=== PATIENT | female | born 1975 | race Caucasian/White ===

== ENCOUNTER 2018-09-22 08:20 | Outpatient (CLI) | payer BC, SELFPAY ==
[2018-09-22 10:38] LABS: ALT 35 U/L (12-78); AST 19 U/L (15-37); Albumin 3.7 g/dL (3.4-5.0); Alkaline Phosphatase 119 U/L (46-116); BUN 11 mg/dL (7-18); Bilirubin, Total 0.4 mg/dL (0.2-1.0); CREATININE 0.81 mg/dL (0.55-1.02); Calcium 9.5 mg/dL (8.5-10.1); Chloride 104 mmol/L (98-107); Cholesterol 164 mg/dL (50-200); Glucose 106 mg/dL (70-100); HDL Cholesterol 36 mg/dL (40-60); LDL CHOLESTEROL 105 mg/dL (<100); Potassium 4.5 mmol/L (3.5-5.1); Sodium 142 mmol/L (136-145); Total Protein 7.3 g/dL (6.4-8.2); Triglyceride 169 mg/dL (30-150)
[2018-09-24 04:41] LABS: Hemoglobin A1C 6.1 % (4.5-6.2)
== END 2018-09-22 08:40 ==
PROVIDERS: PCP Family Medicine; Visit Provider Physician Assistant Medical
DX: R73.01 Impaired fasting glucose (principal); I10 Essential (primary) hypertension; E78.5 Hyperlipidemia, unspecified
CPT/HCPCS: 36415; 80053; 80061; 83721; 83036

== ENCOUNTER 2018-09-27 02:13 | Outpatient (CLI) | payer BC, SELFPAY ==
--- NOTE | 2018-09-27 14:33 | PFT_ITS ---
PULMONARY FUNCTION TEST REPORT DATE OF SERVICE: September 27, 2018 REQUESTING PROVIDER: Terri Feng Spirometry shows no evidence of obstructive airways disease. No bronchodilator response. Lung volumes show no evidence of restriction. Diffusion capacity normal. Airways resistance normal. IMPRESSION: Normal pulmonary function study. Clinical correlation recommended. JUVENTINO/mookie D/
[2018-09-27] MEDS: Inhaler, Assist Device 1 EACH MC (16:26)
[2018-09-27] MEDS: Albuterol HFA 18 GM 200 PUFF INH IH (16:27)
== END 2018-09-27 02:33 ==
PROVIDERS: PCP Family Medicine; Visit Provider Physician Assistant Medical
DX: F17.210 Nicotine dependence, cigarettes, uncomplicated (principal)
CPT/HCPCS: 94060; 94150; 94726; 94729

== ENCOUNTER 2018-12-26 00:33 | Outpatient (CLI) | payer BC, SELFPAY ==
--- NOTE | 2018-12-26 08:10 | DI.MAMMO_ITS ---
SYMPTOM/DIAGNOSIS: SCREENING, [facility] [place], Z00.8, BASELINE MAMMOGRAMS: Mammograms were interpreted according to the usual protocol including computer analysis with CAD system, tomosynthesis and C view imaging. The breast tissue is primarily of fatty radiodensity. There is no mass. There are no suspicious calcifications and there is nothing specific to suggest a malignancy. IMPRESSION: Category 1. Breast density, category A. MQSA ASSESSMENT OF FINDINGS: Negative. Category 1. Patient will receive a letter notifying them of these results. BI-RAD category A. The breasts are almost entirely fatty.
== END 2018-12-26 00:53 ==
PROVIDERS: PCP Family Medicine; Visit Provider Physician Assistant Medical
DX: Z00.00 Encounter for general adult medical examination without abnormal findings (principal); Z12.31 Encounter for screening mammogram for malignant neoplasm of breast
CPT/HCPCS: 77063; 77067

== ENCOUNTER 2018-12-26 18:44 | Emergency (ER) | payer BC, SELFPAY ==
[2018-12-26 19:18] VITALS: BP 168/93; PULSE 104; RESP 16; O2SAT 96
--- NOTE | 2018-12-26 20:21 | ED.GENADUL_ITS ---
Discharge Plan Disposition Patient Disposition: HOME Discharge Details Chief Complaint: Laceration Primary Care Provider: Janice Perez V ED Provider: Clark Quick Home Meds and New Rx's Prescriptions: Continued levothyroxine 175 MCG tablet 200 mcg PO DAILY RF: 0 losartan 25 MG tablet 25 mg PO QAM RF: 0 ibuprofen 800 MG tablet 800 mg PO TID PRN PRNQty: 30 RF: 0 ProAir HFA 8.5 GM HFA aerosol inhaler 8.5 gm Inhalation PRN PRNRF: 0 prednisone 20 MG tablet 40 mg PO DAILY Qty: 14 RF: 0 simvastatin 20 mg Tablet 20 mg PO DAILY RF: 0 Discharge Data Discharge Date/Time-TO BE ENTERED AT DEPARTURE: 12/26/18 20:28 Medical Decision Making Flap laceration to the MCP of right index finger. Tissue is devascularized. 4 mL's of 1% lidocaine with epinephrine were injected. Wound was cleansed and thoroughly irrigated. Flap was removed. Attempted to hold pressure to achieve hemostasis but this was unsuccessful after multiple attempts. Electrocautery was utilized to stop small capillary bleeding and Dermabond was then applied. Patient tolerated procedure well. Patient was encouraged to keep wound clean and dry watch for any signs for of infection. Return precautions were thoroughly discussed with patient. After discussion of diagnosis and plan of care patient has no further needs, questions, or concerns and states clear understanding to return to the emergency department for any worsening symptoms. HPI General Mode of arrival: ambulatory . Date/Time Provider Initiated Documentation: 12/26/18 19:30 . Limitations to Documentation: no limitations . Information obtained by: patient and RN notes reviewed . History of Present Illness 43 year old F presents to the emergency department with the chief complaint of Laceration, described as mild, with intensity rated at 1. Quality is described as aching, and is localized to the right and upper extremity. Patient started experiencing this hour(s) (1) and it has been constant. No relieving factors improve symptom(s), Patient notes no other symptoms.. Patient did receive the following treatments prior to arrival, none Related Data Home Medications Medication Instructions Recorded Confirmed levothyroxine 200 mcg PO DAILY 08/07/13 12/26/18 ibuprofen 800 mg PO TID PRN PRN #30 tablet 02/22/15 12/26/18 losartan 25 mg PO QAM 02/22/15 12/26/18 ProAir HFA 8.5 gm INHALATION PRN PRN 08/18/15 12/26/18 prednisone 40 mg PO DAILY #14 tablet 08/18/15 12/26/18 simvastatin 20 mg PO DAILY 12/26/18 12/26/18 Previous Rx's Medication Instructions Recorded ibuprofen 800 mg PO TID PRN PRN #30 tablet 02/22/15 prednisone 40 mg PO DAILY #14 tablet 08/18/15 Allergies Allergy/AdvReac Type Severity Reaction Status Date / Time No Known Allergies Allergy Unverified 12/26/18 19:23 General Stated Complaint: Laceration RONALD: 4 Review of Systems Cardiovascular Denies syncope and Denies lightheadedness Musculoskeletal Denies deformity, Denies limited range of motion and Denies numbness Integumentary/Breasts Reports as per HPI Neurologic Denies syncope, Denies numbness and Denies paresthesias [facility] Social History Smoking and Tabacco status: Current every day Exam Const General: cooperative and no acute distress Orientation: alert, awake and oriented x3 Limitations: mental status not altered Resp Effort & Inspection: normal respiratory effort and able to speak in complete sentences Cardio Rate: regular rate Rhythm: regular rhythm Neuro General: alert, awake, oriented x3, gait normal, tone normal, moves all extremities, normal light touch, pain and propioception and no focal motor deficits Motor: no movement abnormalities noted Sensory Exam: no sensory deficits noted Extrem Right upper extremity: hand Details: normal capillary refill, neuromotor exam normal, neurosensory exam normal (Two-point discrimination normal), tendon exam normal and laceration (Flap laceration to the dorsal hand above second MCP) Course Vital Signs Pulse 104 H 12/26/18 19:18 Respiratory Rate 16 12/26/18 19:18 Blood Pressure 168/93 H 12/26/18 19:18 Pulse Oximetry 96 12/26/18 19:18 Pulse 104 H 12/26/18 19:18 Respiratory Rate 16 12/26/18 19:18 Respiratory Effort 12/26/18 19:18 Blood Pressure 168/93 H 12/26/18 19:18 Pulse Oximetry 96 12/26/18 19:18 Oxygen Delivery Method Room Air 12/26/18 19:18 Oxygen Flow Rate 0 02/13/19 19:18 Pain Level 1 12/26/18 19:22
[2018-12-26 20:28] VITALS: BP 140/88; PULSE 88; RESP 16; O2SAT 96
== END 2018-12-26 20:28 | disposition home or self-care (01) ==
PROVIDERS: Emergency Provider Nurse Practitioner Family; PCP Family Medicine
DX: S61.210A Laceration without foreign body of right index finger without damage to nail, initial encounter (principal); W25.XXXA Contact with sharp glass, initial encounter
CPT/HCPCS: 12001

== ENCOUNTER 2019-08-15 15:43 | Emergency (ER) | payer BC, SELFPAY ==
[2019-08-15 15:48] VITALS: BP 137/87; PULSE 98; RESP 18; TEMP 36.8; O2SAT 98
--- NOTE | 2019-08-15 16:24 | ED.GENADUL_ITS ---
Discharge Plan Disposition Patient Disposition: HOME Condition: Good Discharge Details Chief Complaint: RespSymp Clinical Impression: Acute respiratory infection Primary Care Provider: Janice Perez V ED Provider: April Contreras Home Meds and New Rx's Prescriptions: New azithromycin 250 mg tablet See Rx Instructions .ROUTE .COMPLEX Qty: 6 RF: 0 benzonatate [Tessalon Perles] 100 mg capsule 100 mg PO TID PRN (Reason: cough) Qty: 10 RF: 0 No Action levothyroxine 175 MCG tablet 200 mcg PO DAILY RF: 0 losartan 25 MG tablet 25 mg PO QAM RF: 0 ibuprofen 800 MG tablet 800 mg PO TID PRN PRNQty: 30 RF: 0 albuterol sulfate [ProAir HFA] 8.5 GM HFA aerosol inhaler 8.5 gm Inhalation PRN PRNRF: 0 amlodipine 10 mg Tablet 10 mg PO DAILY RF: 0 simvastatin 20 mg Tablet 20 mg PO DAILY RF: 0 Discharge Instructions Instructions: Acute Cough (ED) Additional Instructions: Drink plenty of fluids. Use ibuprofen or Tylenol for soreness if needed. Rest activities as tolerated. Use antibiotic as prescribed. Recheck with primary care doctor if not improving in the next 3 to 5 days. Cough medication for symptomatic relief if desired. Return sooner if not improving, for worsening or alarming symptoms or for lack of improvement as expected as discussed Medical Decision Making This a pleasant 44-year-old woman who presents for complaints of 1 1/2 weeks of cough. Patient presents for worsening and persistent cough. Denies measured or associated fevers. Patient is a smoker. Patient is concerned this time that she requires an antibiotic. On exam patient is well-appearing in general, afebrile. No obvious respiratory wheezing or rhonchi. Discussed with patient at length of viral treatment versus antibiotic at this time. Patient feels she does require an antibiotic which I do not feel is unreasonable given that she has been sick for approximately 10 days, symptoms are worsening and she is at higher risk as a smoker. Azithromycin prescribed. Tessalon Perles also prescribed. Conservative treatments discussed. Prior to discharge, my usual and customary return precautions were reviewed with the patient - this included follow-up instructions and reasons to return to the Emergency Department if conditions worsens, does not improve as expected, or other new concerns arise. HPI General Date/Time Provider Initiated Documentation: 08/15/19 15:56 . HPI Narrative: 44-year-old smoker presents for complaints of cough and congestion. Patient reports 1 1/2 weeks of illness. Patient is concerned his cough is persisting, more bothersome. Patient reports intermittent production of cough. Patient reports associated wheezing. Denies difficulty breathing or shortness of breath. Patient has an inhaler at home which she has not been using. Patient denies any measured fever. Chills initially since resolved. Patient reports nasal congestion. No significant sore throat. Mild hoarseness to her voice is worsening in the last few days. Denies ear pain. No nausea, vomiting or diarrhea. No other concerns or complaints at this time. Related Data Home Medications Medication Instructions Recorded Confirmed levothyroxine 200 mcg PO DAILY 08/07/13 08/15/19 ibuprofen 800 mg PO TID PRN PRN #30 tablet 02/22/15 08/15/19 losartan 25 mg PO QAM 02/22/15 08/15/19 albuterol sulfate [ProAir HFA] 8.5 gm INHALATION PRN PRN 08/18/15 08/15/19 simvastatin 20 mg PO DAILY 12/26/18 08/15/19 amlodipine 10 mg PO DAILY 08/15/19 08/15/19 azithromycin See Rx Instructions .ROUTE 08/15/19 .COMPLEX #6 tab benzonatate [Tessalon Perles] 100 mg PO TID PRN #10 cap 08/15/19 Previous Rx's Medication Instructions Recorded ibuprofen 800 mg PO TID PRN PRN #30 tablet 02/22/15 azithromycin See Rx Instructions .ROUTE 08/15/19 .COMPLEX #6 tab benzonatate [Tessalon Perles] 100 mg PO TID PRN #10 cap 08/15/19 Allergies Allergy/AdvReac Type Severity Reaction Status Date / Time methimazole AdvReac Unknown Unverified 08/15/19 16:11 propylthiouracil AdvReac Unknown Unverified 08/15/19 16:14 General Stated Complaint: RespSymp RONALD: 3 Review of Systems Review of Systems ROS Unobtainable: All systems reviewed & are unremarkable except as noted in HPI and below Constitutional Constitutional: Denies chills, Denies excessive sweating, Denies fever(s), Denies poor appetite and Denies weakness ENT Ears, Nose, Mouth, and Throat: Reports change in voice, Denies dysphagia, Denies dizziness, Reports nasal congestion, Denies sinus pain, Denies sinus pressure, Denies sore throat and Denies throat swelling Cardiovascular Cardiovascular: Denies chest pain Respiratory Respiratory: Denies stridor and Reports wheezing Gastrointestinal Gastrointestinal: Denies dysphagia Integumentary/Breasts Skin/Breast: Denies rash Neurologic Neurologic: Denies dizziness and Denies weakness Endocrine Endocrine: Denies excessive sweating Allergic/Immunologic Allergic/Immunologic: Denies throat swelling and Reports wheezing [facility] Social History Smoking/Tobacco Use Status: Current every day Alcohol Intake: never Drug use: Never Do you feel safe at home: Yes Do you feel safe in your relationship?: Yes Exam Narrative Exam Narrative: CONST: Healthy appearing patient, in no acute distress. Well hydrated. Alert and alert. HENMT: Head nomocephalic, normal to inspection. Atraumatic. Hearing grossly normal. EYES: General normal appearance. Alignment normal. Eyelids normal. Conjunctiva normal. NECK: Normal visual inspection. FROM. Trachea midline. No Midline tenderness. CHEST: Normal insepection of the chest. RESP: Normal respiratory effort. Speaking full sentences. No cough. No audible wheezing. No retractions. CARDIO: No JVD. Regular rate and rhythm. MUSCULOSKELETAL: Normal Gait. FROM of all extremities. SKIN: Normal. Dry. NEURO: Alert and awake. Speech clear. PSYCH: Normal affect. Cooperative. Course Vital Signs Vital signs: Vital Signs Temperature 36.8 C 08/15/19 15:48 Pulse 98 H 08/15/19 15:48 Respiratory Rate 18 08/15/19 15:48 Blood Pressure 137/87 08/15/19 15:48 Pulse Oximetry 98 08/15/19 15:48 Temperature 36.8 C 08/15/19 15:48 Temperature Source Skin 08/15/19 15:48 Pulse 98 H 08/15/19 15:48 Respiratory Rate 18 08/15/19 15:48 Respiratory Effort 08/15/19 15:57 Respiratory Depth Normal 08/15/19 15:57 Blood Pressure 137/87 08/15/19 15:48 Blood Pressure Position Sitting 08/15/19 15:48 Pulse Oximetry 98 08/15/19 15:48 Oxygen Delivery Method Room Air 08/15/19 15:48 Oxygen Flow Rate 0 08/15/19 15:48 Pain Level 4 08/15/19 15:48
== END 2019-08-15 16:50 | disposition home or self-care (01) ==
PROVIDERS: Emergency Provider Physician Assistant; PCP Family Medicine
DX: J06.9 Acute upper respiratory infection, unspecified (principal)
CPT/HCPCS: 99283

== ENCOUNTER 2019-12-23 17:32 | Emergency (ER) | payer BC, SELFPAY ==
--- NOTE | 2019-12-23 18:02 | ED.GENADUL_ITS ---
Discharge Plan Disposition Patient Disposition: HOME Condition: Good Discharge Details Chief Complaint: RespSymp Clinical Impression: Pneumonia Primary Care Provider: Janice Perez V ED Provider: Morelia Simons Home Meds and New Rx's Prescriptions: New prednisone 50 mg tablet 50 mg PO DAILY Qty: 5 RF: 0 doxycycline hyclate 100 mg capsule 100 mg PO BID Qty: 14 RF: 0 Continued levothyroxine 175 MCG tablet 200 mcg PO DAILY RF: 0 losartan 25 MG tablet 25 mg PO QAM RF: 0 ibuprofen 800 MG tablet 800 mg PO TID PRN PRNQty: 30 RF: 0 albuterol sulfate [ProAir HFA] 8.5 GM HFA aerosol inhaler 8.5 gm Inhalation PRN PRNRF: 0 amlodipine 10 mg Tablet 10 mg PO DAILY RF: 0 benzonatate [Tessalon Perles] 100 mg capsule 100 mg PO TID PRN (Reason: cough) Qty: 10 RF: 0 simvastatin 20 mg Tablet 20 mg PO DAILY RF: 0 Discharge Instructions Instructions: Pneumonia (ED) Additional Instructions: Encourage water intake. May use Tylenol and/or ibuprofen as needed for discomfort. Please continue with your inhaler as prescribed. Use a spacer as instructed by nursing staff. Please take the steroid and antibiotics as prescribed. Even if symptoms improve, please take the entire course. Please follow-up with primary care as previously scheduled. If you develop difficulty breathing, shortness of breath, inability stay hydrated or other new/worsening symptoms please seek care urgently once again. Your blood pressure was elevated today, please have this rechecked by your primary. Stand Alone Forms: Work Release Referrals: Janice Perez MD [Primary Care Provider] - Discharge Data Discharge Date/Time-TO BE ENTERED AT DEPARTURE: 12/23/19 19:20 Medical Decision Making Patient is a 44-year-old female with history of hypertension and hypothyroidism, presenting today with chief complaint of cough, runny nose, sore throat. She reports that she has had subjective fevers yesterday but none today. No recent travel. She smokes three quarters of a pack cigarettes daily. States she short of breath with cough. States that cough is been largely nonproductive. Also endorsing nasal congestion. Denies any ear pain. Denies any chest pain. On exam, patient is resting comfortably. She is notably hypertensive. Patient reports that she is on antihypertensive but just took medication prior to arrival. She denies any headache. She has pain expiratory wheezing with scattered. She has crackles in the right lower lobe. I am concerned for possible pneumonia. Patient does have symptoms consistent with influenza but is out of the realm of treatment at this time. With this in mind, do not plan to test. FINDINGS: Lungs: Increased interstitial lung markings suggesting edema, infection or fibrotic changes. Pleural space: Unremarkable. No pleural effusion. No pneumothorax. Heart/Mediastinum: Unremarkable. No cardiomegaly. Bones/joints: Unremarkable. IMPRESSION: Increased interstitial lung markings suggesting edema, infection or fibrotic changes. Discussed these findings with the patient. She will be treated with prednisone and doxycycline. She was given a spacer for her inhaler. She does have inhaler at home and advised to continue with this as previously prescribed. She is given strict return precautions. I have asked that she follow-up with primary care in 1 week for reevaluation. If she develops new or worsening symptoms to seek care urgently once again. All of her questions and concerns were addressed she is in agreement this plan. HPI General Mode of arrival: ambulatory . Date/Time Provider Initiated Documentation: 12/23/19 18:02 . Limitations to Documentation: no limitations . Information obtained by: patient and RN notes reviewed . History of Present Illness 44 year old F presents to the emergency department with the chief complaint of Cough, congestion, fevers, body aches, fatigue, described as moderate, with intensity rated at 5. Quality is described as aching, Patient started experiencing this day(s) (4) and it has been constant. No relieving factors improve symptom(s), No exacerbating factors reported . Patient notes cough, fever/chills, malaise and shortness of breath (With cough); denies chest pain, diaphoresis, headaches, nausea/vomiting, rash and weakness. Patient did receive the following treatments prior to arrival, none Related Data Home Medications Medication Instructions Recorded Confirmed levothyroxine 200 mcg PO DAILY 08/07/13 08/15/19 ibuprofen 800 mg PO TID PRN PRN #30 tablet 02/22/15 08/15/19 losartan 25 mg PO QAM 02/22/15 08/15/19 albuterol sulfate [ProAir HFA] 8.5 gm INHALATION PRN PRN 08/18/15 12/23/19 simvastatin 20 mg PO DAILY 12/26/18 08/15/19 amlodipine 10 mg PO DAILY 08/15/19 08/15/19 benzonatate [Tessalon Perles] 100 mg PO TID PRN #10 cap 08/15/19 doxycycline hyclate 100 mg PO BID #14 cap 12/23/19 prednisone 50 mg PO DAILY #5 tab 12/23/19 Previous Rx's Medication Instructions Recorded ibuprofen 800 mg PO TID PRN PRN #30 tablet 02/22/15 benzonatate [Tessalon Perles] 100 mg PO TID PRN #10 cap 08/15/19 doxycycline hyclate 100 mg PO BID #14 cap 12/23/19 prednisone 50 mg PO DAILY #5 tab 12/23/19 Allergies Allergy/AdvReac Type Severity Reaction Status Date / Time methimazole AdvReac Unknown Unverified 12/23/19 18:09 propylthiouracil AdvReac Unknown Unverified 12/23/19 18:09 General RONALD: 3 Review of Systems Constitutional Constitutional: Reports as per HPI and Denies headache(s) Eyes Eyes: Reports as per HPI, Denies eye discharge and Denies irritation ENT Ears, Nose, Mouth, and Throat: Reports as per HPI and Denies headache(s) Cardiovascular Cardiovascular: Reports as per HPI, Denies chest pain and Denies dyspnea Respiratory Respiratory: Reports as per HPI and Denies dyspnea Gastrointestinal Gastrointestinal: Reports as per HPI, Denies abdominal pain, Denies change in bowel habits, Denies nausea and Denies vomiting Integumentary/Breasts Skin/Breast: Reports as per HPI and Denies rash Neurologic Neurologic: Reports as per HPI and Denies headache(s) [facility] Social History Smoking/Tobacco Use Status: Current every day Alcohol Intake: never Drug use: Never Do you feel safe at home: Yes Do you feel safe in your relationship?: Yes Exam Const General: cooperative, healthy appearing, comfortable, no acute distress, well developed and well groomed Nutritional Appearance: average body habitus and well nourished Orientation: alert and awake [facility] Head: normal to inspection, normocephalic and atraumatic Ears: hearing grossly normal bilaterally, external ears normal and TM's normal bilaterally General nose exam: external nose normal and nares normal Face and sinus: normal facial exam, sinuses nontender and face symmetric Mouth: oral mucosae normal, lip normal, tongue normal, oropharynx normal and moist mucous membranes Teeth and gingiva: dentition normal Throat: posterior oropharynx normal, tonsils normal and uvula midline Eyes General: appearance normal, both eyes and all related structures Neck Neck: normal visual inspection, full ROM, no lymphadenopathy and no meningeal signs Resp Effort & Inspection: normal respiratory effort, able to speak in complete sentences and no respiratory distress Auscultation: crackles (RLL), no rales, no rhonchi and wheezes expiratory wheezes and scattered wheezes Cardio Rate: regular rate Rhythm: regular rhythm Heart Sounds: S1 normal and S2 normal Skin General skin exam: no rashes or lesions noted Neuro General: alert and awake Cognition: normal cognition Speech: speech normal Gait: normal gait Psych Appearance: grossly normal and well kempt Mental Status: mental status grossly normal Speech and Movement: speech and movement normal
[2019-12-23 18:07] VITALS: BP 186/90; PULSE 104; RESP 22; TEMP 36.8; O2SAT 94
[2019-12-23] MEDS: Ibuprofen 600 MG TAB PO (18:18)
[2019-12-23] MEDS: Albuterol/Ipratropium 3 ML UPD VIAL UPD (18:18)
[2019-12-23] MEDS: Acetaminophen 500 MG TAB 1000 MG PO (18:18)
--- NOTE | 2019-12-23 18:38 | DI.RAD_ITS ---
EXAM: XR CHEST 2V PA LATERAL INDICATION: cough, wheezing BLL. COMPARISON: CHEST 2 VIEWS PA,LAT from 08/18/2015 TECHNIQUE: 2D digital imaging was performed. FINDINGS: Heart size is normal. There are mildly increased interstitial markings consistent with fibrotic kayla nges. The findings are slightly more prominent when compared with the previous exam which could indic ate some progression of fibrosis or could indicate bronchitis or mild pulmonary edema. IMPRESSION: Mildly increased interstitial markings could represent progression of fibrotic changes versus superim posed pulmonary edema or infectious cause.
--- NOTE | 2019-12-23 18:50 | DI.VRAD_ITS ---
PROCEDURE INFORMATION: Exam: XR Chest, 2 Views Exam date and time: 12/23/2019 6:38 PM Age: 44 years old Clinical indication: Other: Cough, wheezing bll TECHNIQUE: Imaging protocol: XR of the chest Views: 2 views. COMPARISON: CR CHEST 2 VIEWS PA,LAT 08/18/2015 11:04 AM FINDINGS: Lungs: Increased interstitial lung markings suggesting edema, infection or fibrotic changes. Pleural space: Unremarkable. No pleural effusion. No pneumothorax. Heart/Mediastinum: Unremarkable. No cardiomegaly. Bones/joints: Unremarkable. IMPRESSION: Increased interstitial lung markings suggesting edema, infection or fibrotic changes. Dictated and Authenticated by: Josué Brito MD. Ordering:ALEN Thibodeaux MD
[2019-12-23 19:20] VITALS: BP 153/91; PULSE 103; RESP 18; TEMP 36.6; O2SAT 93
== END 2019-12-23 19:20 | disposition home or self-care (01) ==
PROVIDERS: Emergency Provider Physician Assistant; PCP Family Medicine
DX: J02.9 Acute pharyngitis, unspecified (principal); R05 Cough; J18.9 Pneumonia, unspecified organism; F17.210 Nicotine dependence, cigarettes, uncomplicated; I10 Essential (primary) hypertension
CPT/HCPCS: 94640; 99283; 71046; 99284; J7620

== ENCOUNTER 2020-01-16 08:31 | Outpatient (CLI) | payer BC, SELFPAY ==
--- NOTE | 2020-01-16 | DI.RAD_ITS ---
EXAM: XR CHEST 2V PA LATERAL CLINICAL HISTORY: COUGH, R05 TECHNIQUE: 2D digital imaging was performed. COMPARISON: XR CHEST 2V PA LATERAL from 12/23/2019 FINDINGS: MEDIASTINUM: Normal. HEART: Normal. PULMONARY VASCULATURE: Normal. LUNGS: Clear. PLEURAL SPACE: No pleural effusion or pneumothorax. BONE:Normal. OTHER FINDINGS:Normal. IMPRESSION: No acute pulmonary findings. DATA REPOSITORY: RADIATION DOSE DELIVERED:
== END 2020-01-16 08:51 ==
PROVIDERS: PCP Family Medicine; Visit Provider Physician Assistant Medical
DX: R05 Cough (principal)
CPT/HCPCS: 71046

== ENCOUNTER 2020-01-18 08:37 | Outpatient (CLI) | payer BC, SELFPAY ==
[2020-01-18 14:07] LABS: ALT 51 U/L (14-59); AST 29 U/L (15-37); Albumin 3.9 g/dL (3.4-5.0); Alkaline Phosphatase 113 U/L (46-116); Anion Gap 8.7 mmol/L (3-11); BUN 13 mg/dL (7-18); Bilirubin, Total 0.3 mg/dL (0.2-1.0); CO2 28.3 mmol/L (21.0-32.0); CREATININE 0.74 mg/dL (0.55-1.02); Calcium 9.1 mg/dL (8.5-10.1); Calculated LDL 176 mg/dL (<100); Chloride 106 mmol/L (98-107); Cholesterol 257 mg/dL (<200); Glucose 124 mg/dL (74-106); HDL Cholesterol 33 mg/dL (40-60); Potassium 4.3 mmol/L (3.5-5.1); Sodium 143 mmol/L (136-145); TSH 1.43 uIU/mL (0.36-3.74); Total Protein 7.3 g/dL (6.4-8.2); Triglyceride 241 mg/dL (<150)
[2020-01-20 08:31] LABS: Hemoglobin A1C 6.6 % (3.8-5.6)
== END 2020-01-18 08:57 ==
PROVIDERS: PCP Family Medicine; Visit Provider Physician Assistant Medical
DX: R73.01 Impaired fasting glucose (principal); E03.9 Hypothyroidism, unspecified; E78.5 Hyperlipidemia, unspecified; Z00.00 Encounter for general adult medical examination without abnormal findings
CPT/HCPCS: 36415; 80053; 80061; 83036; 84443

== ENCOUNTER 2020-07-21 15:53 | Outpatient (REF) | payer BC, SELFPAY ==
[2020-07-21 19:26] LABS: Abs Immature Grans 0.04 10^3/uL (0.0-0.06); Absolute Basophil Count 0.07 10^3/uL (0.0-0.2); Absolute Lymphocyte Count 2.43 10^3/uL (1.2-3.4); Absolute Monocyte Count 0.59 10^3/uL (0.1-0.8); Absolute Neutrophil Count 6.15 10^3/uL (1.2-6.7); Basophils % 0.7; Eosinophils % 4.1; HCT 47.3 % (36.0-46.0); HGB 15.5 g/dL (11.2-15.7); Immature Grans % 0.4; Lymphocytes % 25.1; MCH 29.4 pg (27.0-33.0); MCHC 32.8 % (32.0-36.0); MCV 89.6 fL (80-95); MPV 10.3 fL (8.0-11.0); Monocytes % 6.1; Neutrophils % 63.6; Nucleated RBC 0 %; Platelet Count 317 10^3/uL (130-400); RBC 5.28 10^6/uL (3.93-5.22); RDW 14.1 % (11.7-14.6); RDW-SD 46.4 fL; WBC 9.68 10^3/uL (4.4-10.8)
[2020-07-21 19:55] LABS: ALT 43 U/L (14-59); AST 30 U/L (15-37); Albumin 3.9 g/dL (3.4-5.0); Alkaline Phosphatase 118 U/L (46-116); Anion Gap 8.5 mmol/L (3-11); BUN 11 mg/dL (7-18); Bilirubin, Total 0.3 mg/dL (0.2-1.0); CO2 26.5 mmol/L (21.0-32.0); CREATININE 0.76 mg/dL (0.55-1.02); Calcium 9.2 mg/dL (8.5-10.1); Calculated LDL 205 mg/dL (<100); Chloride 102 mmol/L (98-107); Cholesterol 277 mg/dL (<200); Glucose 125 mg/dL (74-106); HDL Cholesterol 32 mg/dL (40-60); Potassium 4.5 mmol/L (3.5-5.1); Sodium 137 mmol/L (136-145); TSH 6.25 uIU/mL (0.36-3.74); Total Protein 7.3 g/dL (6.4-8.2); Triglyceride 200 mg/dL (<150)
[2020-07-21 20:06] LABS: Hemoglobin A1C 6.2 % (<5.7)
[2020-07-23 16:33] LABS: IgA 233 mg/dL (85-499); Interpretation (See Note); Tissue Transglutaminase IgA <1.2 U/mL (<4.0)
== END 2020-07-21 16:13 ==
LOC: NCHCN 15:53
PROVIDERS: PCP Family Medicine; Visit Provider Physician Assistant Medical
DX: E11.9 Type 2 diabetes mellitus without complications (principal); E78.5 Hyperlipidemia, unspecified; I10 Essential (primary) hypertension; E03.9 Hypothyroidism, unspecified; R19.7 Diarrhea, unspecified
CPT/HCPCS: 80053; 80061; 82784; 83516; 83036; 84443; 85025

== ENCOUNTER 2020-11-11 17:10 | Outpatient (REF) | payer BC, SELFPAY ==
--- OUTSIDE RECORDS SUMMARY | 2020-11-11 17:25 | XMS_ITS ---
:1975 Author Care Team Providers Name Role Phone DR. DOROTHY GOLDMAN Primary Care Provider [phone] DR. DOROTHY GOLDMAN Referring Provider [phone] Allergies Code Code System Name Reaction Severity Status Onset 6835 RxNorm Methimazole ? ? Active ? Medications Name Status Start Date Stop Date ? ? amlodipine 10 mg tablet Active ? Not avai lable Take 1 tablet every day by oral route. aspirin 81 mg tablet,delayed release Active ? Not available Take 1 tablet every day by oral route. azithromycin 250 mg tablet Active ? Not a vailable benzonatate 100 mg capsule Active ? Not a vailable Crestor 5 mg tablet Active ? Not availabl e Take 1 tablet every day by oral route. doxycycline hyclate 100 mg capsule Active ? Not available Glucophage 500 mg tablet Active ? Not savana ilable Take 1 tablet every day by oral route. levothyroxine 100 mcg tablet Active ? Not available Take 1 tablet every day by oral route. levothyroxine 125 mcg tablet Active ? Not available Take 1 tablet every day by oral route. losartan 100 mg tablet Active ? Not avail able Take 1 tablet every day by oral route. metformin ER 500 mg tablet,extended Active ? Not available release 24 hr OneTouch Delica Plus Lancet 33 gauge Active ? Not available OneTouch Ultra Blue Test Strip Active ? N ot available OneTouch Ultra2 Meter Active ? Not availa ble prednisone 50 mg tablet Active ? Not avai lable ProAir HFA 90 mcg/actuation aerosol inhaler Active ? Not available Inhale 2 puffs every 4 hours by inhalation route as needed. rosuvastatin 20 mg tablet Active ? Not av ailable rosuvastatin 40 mg tablet Active ? Not av ailable triamcinolone acetonide 0.1 % topical ointment Active ? Not available APPLY A THIN LAYER TO THE AFFECTED AREA(S) BY TOPICAL ROUTE 2 T IMES PER DAY Problems Name Status Onset Date Source ? Hypothyroidism Active 05/04/2020 ? Type 2 Diabetes Mellitus Active 05/04/2020 ? Hypertensive Disorder Active 05/04/2020 ? Plantar Fasciitis Active 05/04/2020 ? Nodule of Subcutaneous Tissue of Foot Active 05/04/2020 ? Procedures None recorded. Results Lab Results None recorded. Past Encounters 05/07/2020 Ingrowing Great Toenail; Plantar Fascial Fibromatosis Taz Tavares: [address] [place] [address], Ph. Social History Tobacco Smoking Status Heavy Tobacco Smoker (1 PPD) Vaccine List None recorded. Plan of Care Reminders Provider Appointments None ? ? recorded. Lab None ? ? recorded. Referral None ? ? recorded. Procedures None ? ? recorded. Surgeries None ? ? recorded. Imaging None ? ? recorded. Vitals Height Weight BMI Blood Pressure 163.83 cm 108.86 kg 40.6 kg/m2 140/78 mm[Hg]
[2020-11-11 21:07] LABS: TSH 20.99 uIU/mL (0.36-3.74)
[2020-11-11 21:10] LABS: Hemoglobin A1C 6.2 % (<5.7)
== END 2020-11-11 17:30 ==
LOC: NCHCN 17:10
PROVIDERS: PCP Family Medicine; Visit Provider Physician Assistant Medical
DX: E11.9 Type 2 diabetes mellitus without complications (principal); E78.5 Hyperlipidemia, unspecified
CPT/HCPCS: 83036; 84443

== ENCOUNTER 2020-12-17 15:50 | Outpatient (REF) | payer BC, SELFPAY ==
[2020-12-17 19:05] LABS: Creatine Kinase 211 U/L (26-192)
== END 2020-12-17 15:51 | disposition home or self-care (01) ==
LOC: NCHCN 15:50
PROVIDERS: PCP Family Medicine; Visit Provider Nurse Practitioner Family
DX: E78.5 Hyperlipidemia, unspecified (principal); Z51.81 Encounter for therapeutic drug level monitoring
CPT/HCPCS: 82550

== ENCOUNTER 2021-01-15 09:15 | Outpatient (REF) | payer BC, SELFPAY ==
[2021-01-15 16:10] LABS: BUN 12 mg/dL (7-18); CREATININE 0.9 mg/dL (0.55-1.02); Calcium 9.9 mg/dL (8.5-10.1); Chloride 100 mmol/L (98-107); Creatine Kinase 155 U/L (26-192); Glucose 109 mg/dL (74-106); Potassium 4.1 mmol/L (3.5-5.1); Sodium 140 mmol/L (136-145)
[2021-01-15 22:20] LABS: T3, Total 172 ng/dL (97-169)
== END 2021-01-15 09:16 | disposition home or self-care (01) ==
LOC: NCHCN 09:15
PROVIDERS: PCP Family Medicine; Visit Provider Physician Assistant Medical
DX: I10 Essential (primary) hypertension (principal)
CPT/HCPCS: 80048; 82550; 84480

== ENCOUNTER → 2021-05-28 09:06 | Outpatient (CLI) | payer BC, SELFPAY ==
--- NOTE | 2021-05-28 | DI.RAD_ITS ---
Exam(s) XR SACRUM COCCYX EXAM: XR SACRUM COCCYX CLINICAL HISTORY: COCCYDYNIA M53.3 S/P FALL 05/16/21. TECHNIQUE: 2D digital imaging was performed. COMPARISON: No exams were available for comparison FINDINGS: BONES: No acute fracture is present. No bony destructive lesion is seen. JOINTS: SI joints and pubic symphysis not widened.. SOFT TISSUE: Calcifications iliac arteries.. IMPRESSION: No evidence of fracture.. DATA REPOSITORY: RADIATION DOSE DELIVERED:
== END ==
PROVIDERS: PCP Family Medicine; Visit Provider Physician Assistant Medical
DX: G89.11 Acute pain due to trauma (principal); M53.3 Sacrococcygeal disorders, not elsewhere classified; W19.XXXA Unspecified fall, initial encounter
CPT/HCPCS: 72220

== ENCOUNTER 2021-09-06 09:18 | Outpatient (REF) | payer BC, SELFPAY ==
[2021-09-08 14:31] LABS: COVID-19 RT-PCR UVMMC Result Negative (Negative)
== END 2021-09-06 09:19 | disposition home or self-care (01) ==
LOC: NCHCN 09:18
PROVIDERS: PCP Family Medicine; Visit Provider Physician Assistant Medical
DX: Z20.822 Contact with and (suspected) exposure to COVID-19 (principal)
CPT/HCPCS: U0003

== ENCOUNTER 2021-11-22 15:03 | Outpatient (REF) | payer BC, SELFPAY ==
[2021-11-22 12:33] LABS: Abs Immature Grans 0.07 10^3/uL (0.0-0.06); Absolute Basophil Count 0.09 10^3/uL (0.0-0.2); Absolute Eosinophil Count 0.39 10^3/uL (0.0-0.7); Absolute Lymphocyte Count 2.94 10^3/uL (1.2-3.4); Absolute Neutrophil Count 7.23 10^3/uL (1.2-6.7); Basophils % 0.8; Eosinophils % 3.4; HCT 49.1 % (36.0-46.0); HGB 15.9 g/dL (11.2-15.7); Immature Grans % 0.6; Lymphocytes % 25.4; MCH 29.6 pg (27.0-33.0); MCHC 32.4 % (32.0-36.0); MCV 91.4 fL (80-95); MPV 9.9 fL (8.0-11.0); Monocytes % 7.3; Neutrophils % 62.5; Nucleated RBC 0 %; Platelet Count 341 10^3/uL (130-400); RBC 5.37 10^6/uL (3.93-5.22); RDW-SD 47.3 fL; WBC 11.57 10^3/uL (4.4-10.8)
[2021-11-22 12:34] LABS: Absolute Monocyte Count 0.84 10^3/uL (0.1-0.8)
[2021-11-22 12:49] LABS: Hemoglobin A1C 5.7 % (<5.7)
[2021-11-22 13:02] LABS: ALT 26 U/L (14-59); AST 11 U/L (15-37); Albumin 3.8 g/dL (3.4-5.0); Alkaline Phosphatase 111 U/L (46-116); Anion Gap 8.8 mmol/L (3-11); BUN 13 mg/dL (7-18); Bilirubin, Total 0.2 mg/dL (0.2-1.0); CO2 27.2 mmol/L (21.0-32.0); CREATININE 0.8 mg/dL (0.55-1.02); Calcium 9.2 mg/dL (8.5-10.1); Calculated LDL 194 mg/dL (<100); Chloride 104 mmol/L (98-107); Cholesterol 265 mg/dL (<200); Glucose 97 mg/dL (74-106); HDL Cholesterol 39 mg/dL (40-60); Potassium 4.6 mmol/L (3.5-5.1); Sodium 140 mmol/L (136-145); TSH 2.63 uIU/mL (0.36-3.74); Total Protein 7.2 g/dL (6.4-8.2); Triglyceride 160 mg/dL (<150)
== END 2021-11-22 15:04 | disposition home or self-care (01) ==
LOC: NCHCN 15:03
PROVIDERS: PCP Family Medicine; Visit Provider Physician Assistant Medical
DX: I10 Essential (primary) hypertension (principal); E11.9 Type 2 diabetes mellitus without complications; Z01.818 Encounter for other preprocedural examination
CPT/HCPCS: 80053; 80061; 83036; 84443; 85025

== ENCOUNTER 2021-12-08 00:57 | Outpatient (CLI) | payer BC, SELFPAY ==
--- NOTE | 2021-12-08 | DI.CT_ITS ---
Exam(s) CT ABDOMEN PELVIS W EXAM: CT ABDOMEN PELVIS W CLINICAL HISTORY: RT GROIN PAIN, R10.31. TECHNIQUE: Imaging Protocol: Axial computed tomography images with coronal and sagittal reformatted images were created and reviewed CONTRAST MATERIAL: Intravenous: Omnipaque 100cc Oral: Yes. Oral contrast was administered for bowel opacification. COMPARISON: CT RENAL COLIC WO CONTRAST from 03/28/2012 FINDINGS: VISUALIZED LUNG BASES: No nodules nor pleural effusions evident. ABDOMEN: There is no ascites. LIVER: There are no focal hepatic lesions evident . GALLBLADDER/BILIARY: The gallbladder is again noted be surgically absent. CBD is not dilated. PANCREAS: No evidence of pancreatic mass nor dilatation of the pancreatic duct. SPLEEN: Spleen is not enlarged. No obvious intrasplenic lesions. Splenic and portal veins are paten t. ADRENALS: There are no significant adrenal masses. KIDNEYS:No cysts evident. No solid renal masses. No calculi nor hydronephrosis.. ABDOMINAL AORTA: Heavily calcified but not enlarged. The common iliac arteries are both also heavily calcified but not enlarged. LYMPH NODES:There is no retroperitoneal nor paraaortic adenopathy. ABDOMINAL WALL: No evidence of significant anterior abdominal wall nor inguinal hernia. GI: Right-side of the colon is collapsed from the level of the ileocecal valve up to proximal transve rse colon. The oral contrast has reached the cecum (which is low-lying in the pelvis just above the u rinary bladder. Small bowel loops exhibit upper normal diameter. No bowel obstruction.. PELVIS: GI: Appendix is not seen is a separate structure. No obvious acute appendicitis.No evidence of sigmoi d diverticulitis. LYMPH NODES: No intrapelvic nor inguinal adenopathy. A single slightly prominent lymph node in the [facility] infra-inguinal region noted measures 11 x 5 millimeters. No gross lymphadenopathy in either groin . REPRODUCTIVE: Uterus is surgically absent. No abnormal adnexal masses nor free fluid in the pelvis. URINARY BLADDER: No calculi nor obvious masses evident OSSEOUS: No significant osseous lesions. IMPRESSION: 1. There is evidence of previous cholecystectomy and hysterectomy. Biliary tree is not dilated. No ev idence of small-bowel obstruction 2. No evidence of aneurysm but the abdominal aorta and iliac arteries are heavily calcified this age group indicating significant atherosclerotic involvement. Recommend palpating groin/pedal pulses. 3. Right-side of the colon is collapsed. The oral contrast has reached the cecum which is low lying, just above the urinary bladder. Appendix is not seen but there is no evidence of acute appendicitis n or diverticulitis. 4. Solitary shoddy 11 x 5 millimeter lymph node noted in the right inferior inguinal region. No gross lymphadenopathy evident. RADIATION DOSE DELIVERED: 1,055.4mGy.cm Total DLP DATA REPOSITORY: All CT scans at this facility are submitted to the National Radiology Data Registry (NRDR) Dose Index Registry (DIR) with the [employer] (ACR). RADIATION OPTIMIZATION: All CT scans at this facility use at least one of these dose optimization te chniques: automated exposure control; mA and/or kV adjustment per patient size (includes targeted exa ms where dose is matched to clinical indication); or iterative reconstruction.
[2021-12-08] MEDS: Omnipaque 350 MG/ML 50 ML BTL PO (08:43)
[2021-12-08] MEDS: Breeza Beverage 473 ML BTL PO ×2 (08:44→08:45)
[2021-12-08] MEDS: Omnipaque 350 MG/ML 100 ML BTL IJ (08:45)
[2021-12-08] MEDS: Normal Saline Flush 10 ML SYR IVP (08:47)
--- NOTE | 2021-12-08 10:30 | DI.MAMMO_ITS ---
Exam(s) MAMMO SCREENING EXAM: MAMMO SCREENING CLINICAL HISTORY: SCREENING, HEALTH MAINTENANCE EXAM, Z00.8. TECHNIQUE: Bilateral full field digital CC and MLO mammographic images were obtained with 3D tomosyn thesis and utilizing computer aided detection (CAD). COMPARISON: Prior baseline mammogram of the December 2018 FINDINGS: There are no new spiculated masses nor malignant appearing microcalcification groups. There is no significant architectural distortion nor skin thickening-retraction. IMPRESSION: No radiographic evidence of malignancy. BI-RADS Category 1 - Negative Breast Density - Category A - Almost entirely fatty Breast density Category C or D implies that the patient has dense breast tissue. Dense breast tissue can make it harder to find cancer on a mammogram. Dense breast tissue is also associated with an incr eased risk of breast cancer. This information about the result of the mammogram report was provided to the patient to raise their awareness. Use this report when you speak with the patient about their risks for breast cancer, which includes their family history. At that time, you may recommend additional screening tests (Ultrasoun d or MRI) as these tests may add significant information. A negative radiographic report should not delay biopsy if a dominant or clinically suspicious mass is present. Up to ten percent of cancers are not identified on mammography. A negative report may reinforce clinical impression. Adenosis and dense breasts may obscure an underlying neoplasm. False positive reports average 6 to 10%. Patient will receive a letter notifying them of these results.
== END 2021-12-08 01:17 ==
LOC: DI 00:58
PROVIDERS: PCP Family Medicine; Visit Provider Physician Assistant Medical
DX: Z12.31 Encounter for screening mammogram for malignant neoplasm of breast (principal); Z00.00 Encounter for general adult medical examination without abnormal findings; R10.31 Right lower quadrant pain; I70.0 Atherosclerosis of aorta; K63.89 Other specified diseases of intestine; R59.0 Localized enlarged lymph nodes; Z90.49 Acquired absence of other specified parts of digestive tract; Z90.710 Acquired absence of both cervix and uterus
CPT/HCPCS: 77063; 77067; 74177; J3490; Q9967

== ENCOUNTER 2022-01-01 12:55 | Emergency (ER) | payer BC, SELFPAY ==
--- NOTE | 2022-01-01 13:00 | RT.EKG_ITS ---
APPROVED REPORT Exam: Resting ECG Reason for Exam: palpitations Patient Location: E HR:98 bpm ECG Measurements Heart Rate 98 AXIS KS 200 P 42 QRSd 102 QRS 55 QT 366 T 40 QTc 466 Conclusion Sinus rhythm...normal P axis, V-rate 60- 99 Borderline prolonged KS interval...KS >197, V-rate 91-120 Probable left atrial enlargement...P >50mS, <-0.10mV V1 normal sinus rhythm, normal axis, non ischemic
[2022-01-01 13:01] VITALS: BP 166/74; PULSE 111; RESP 21; TEMP 36.9; O2SAT 96
[2022-01-01 13:58] VITALS: RESP 16
--- NOTE | 2022-01-01 14:15 | DI.CT_ITS ---
Exam(s) CT ABD AORTA CTA W RUNOFF EXAM: CT ABD AORTA CTA W RUNOFF CLINICAL HISTORY: R groin pain, known vessel disease. TECHNIQUE: Imaging Protocol: Axial computed tomography images with coronal and sagittal reformatted images were created and reviewed CONTRAST MATERIAL: Intravenous: Omnipaque 350 Contrast volume:100 ml Oral: None COMPARISON: CT CT ABDOMEN PELVIS W from 12/08/2021 FINDINGS: CHEST: Visualized lung bases reveal a 2-3 millimeter pleural base nodule in the lingular segment. No pleura l effusions ABDOMEN: There is no evidence of abdominal aortic aneurysm nor dissection. The celiac and superior mesenteric arteries are patent.Inferior mesenteric artery is patent. No ischemic appearing bowel loops. There is atherosclerotic involvement of distal abdominal aorta. Also of the common iliac arteries (w hich are not dilated). However, there is no critical stenosis evident in these vessels nor at the ju nction with the external iliac arteries. Both external iliac arteries are patent as are the common f emoral arteries. Internal iliac arteries are patent and nonaneurysmal. There calcified distally. Both SFA arteries are patent without significant disease and Claus's canal and both are continuous w ith patent bilateral popliteal arteries. No evidence of popliteal artery aneurysm. There is three-v essel runoff in the left calf.. Two vessel runoff in the right calf. There is no ascites. LIVER: There are no focal hepatic lesions nor dilatation of intrahepatic ducts. GALLBLADDER/BILIARY: Gallbladder surgically absent. CBD is not dilated. PANCREAS: No evidence of pancreatic mass nor dilatation of the pancreatic duct. SPLEEN: Spleen is not enlarged ADRENALS: There are no significant adrenal masses. KIDNEYS: No cysts evident. No calculi nor hydronephrosis. No solid renal masses. LYMPH NODES: There is no retroperitoneal nor para-aortic adenopathy. No obvious mesenteric masses. ABDOMINAL WALL: No evidence of significant anterior abdominal wall hernia. GI: There is no evidence of bowel obstruction, free air, nor abscess. PELVIS: LYMPH NODES: There is no intrapelvic nor inguinal adenopathy. GI: No evidence of appendicitis.No evidence of sigmoid diverticulitis. URINARY BLADDER: No calculi nor masses evident REPRODUCTIVE: Uterus is surgically absent. No abnormal adnexal masses. OSSEOUS: No significant osseous lesions. IMPRESSION: 1. No evidence of abdominal aortic aneurysm. Moderate atherosclerotic involvement of the distal abdo mraquez aorta and common iliac arteries but without critical stenosis nor occlusion.. Patent runoff in both lower extremities. 2. Gallbladder surgically absent. Biliary tree is not dilated. 3. Uterus is surgically absent. No abnormal adnexal masses. RADIATION DOSE DELIVERED: 1,869.3mGy.cm Total DLP DATA REPOSITORY: All CT scans at this facility are submitted to the National Radiology Data Registry (NRDR) Dose Index Registry (DIR) with the [employer] (ACR). RADIATION OPTIMIZATION: All CT scans at this facility use at least one of these dose optimization te chniques: automated exposure control; mA and/or kV adjustment per patient size (includes targeted exa ms where dose is matched to clinical indication); or iterative reconstruction.
--- NOTE | 2022-01-01 14:15 | DI.RAD_ITS ---
Exam(s) XR CHEST 2V PA LATERAL EXAM: XR CHEST 2V PA LATERAL CLINICAL HISTORY: Palpitation. TECHNIQUE: 2D digital imaging was performed. COMPARISON: CR XR CHEST 2V PA LATERAL from 01/16/2020 FINDINGS: Heart size is normal. The mediastinum is not widened. Lungs are clear. No infiltrates nor pleural effusions. IMPRESSION: No acute pulmonary findings. DATA REPOSITORY: RADIATION DOSE DELIVERED:
--- NOTE | 2022-01-01 14:19 | W.ED.GENAD ---
Discharge Plan Disposition Patient Disposition: HOME Condition: Stable Discharge Details Clinical Impression: Atherosclerosis Primary Care Provider: Janice Perez V ED Provider: Susan Rowan Home Meds and New Rx's Prescriptions: Continued levothyroxine 175 MCG tablet 225 mcg PO DAILY 0RF losartan 25 MG tablet 25 mg PO QAM 0RF ibuprofen 800 MG tablet 800 mg PO TID PRN PRNQty: 30 0RF amlodipine 10 mg Tablet 10 mg PO DAILY 0RF hydrochlorothiazide 25 mg tablet 25 mg PO DAILY 0RF Label Comments: TAKE 1 TABLET BY MOUTH ONCE DAILY Jardiance 10 mg tablet 10 mg PO DAILY 0RF Label Comments: Take 1 tablet by mouth once a day Discharge Instructions Instructions: Groin Pain (ED) Additional Instructions: At this time CT shows no significant occlusion or blockage of your artery. You do have calcification and plaque buildup in the distal aorta and iliac vessels. There is no other abnormalities to explain your pain. Follow up with primary care provider in 3-5 days. Return to ED sooner if any worsening or concerns. Increase oral fluids. Please take Tylenol or Ibuprofen with food every 4-6 hours as needed for pain and swelling. Referrals: Janice Perez MD [Primary Care Provider] - 3 days Discharge Data Discharge Date/Time-TO BE ENTERED AT DEPARTURE: 01/01/22 18:58 Medical Decision Making <SANDEEP Miller - Last Filed: 01/02/22 08:17> 46-year-old female presents for acute on chronic right groin pain, diagnosed with significant atherosclerotic disease via abdomen and pelvis CT with contrast just last month. In the process of getting referral to vascular. Also reports of palpitations a little prior to arrival. Pulse in triage was 111 but during my evaluation was 80. She does have reproducible right groin discomfort worse with palpation and movement. Normal pedal pulses. No swelling, erythema, warmth, discoloration. Given her palpitations, I will initiate a cardiac work-up. We will also obtain CTA of her abdominal aorta with runoff to further evaluation of that right hip pain. Medical Records Medical records reviewed: Yes I reviewed the patient's medical records. ECG Data Attestation: I personally reviewed and interpreted this ECG (s) as follows: Interpretation: Please see official report by Dr. Fields, sinus rhythm, ventricular rate of 98, no STEMI <Susan Rowan - Last Filed: 01/01/22 21:18> 46-year-old female presents for acute on chronic right groin pain, diagnosed with significant atherosclerotic disease via abdomen and pelvis CT with contrast just last month. In the process of getting referral to vascular. Also reports of palpitations a little prior to arrival. Pulse in triage was 111 but during my evaluation was 80. She does have reproducible right groin discomfort worse with palpation and movement. Normal pedal pulses. No swelling, erythema, warmth, discoloration. Given her palpitations, I will initiate a cardiac work-up. We will also obtain CTA of her abdominal aorta with runoff to further evaluation of that right hip pain. 1630: SJ: Care assumed from provider (Riccardo Lee PA-C Please see their initial HPI, PE, and documentation. Discussed patient details and case and pending workup and disposition. Patient is hemodynamically stable, and alert and oriented. At the time of signout awaiting CT, CBC shows no leukocytosis, potassium 3.0, initial troponin within normal limits. Second troponin is due at 1720. 40 mEq potassium p.o. ordered. CTA Aorta Run Off: IMPRESSION: There is mild to moderate atherosclerosis of the distal aorta and iliac vessels. No critical stenosis is seen. There is no vascular occlusion. Lower extremity femoral and runoff vessels are normal. Thank you for allowing us to participate in the care of your patient. Dictated and Authenticated by: Ruperto Quiroz MD Discussed CT results with patient who verbalized understanding. I did discuss follow-up care and strict return instructions. Serial troponin within normal limits. Patient has remained hemodynamically stable throughout her stay. This text was generated using [employer] system, please disregard any oddities of phrase or misspellings. HPI <SANDEEP Miller - Last Filed: 01/02/22 08:17> General Mode of arrival: ambulatory. Date/Time Provider Initiated Documentation: 01/01/22 13:01. Limitations to Documentation: no limitations. Information obtained by: patient. HPI Narrative: This is a 46-year-old female, past medical history that includes hypertension, thyroid disease, vascular disease, presents to the ER for evaluation of right groin pain, in general going on for a few months but worse over the past week or so. She was seen by her primary care provider last month and evaluated for this, CT of her abdomen and pelvis revealed some calcification, and is in the process of being referred to a vascular at [facility]. Patient denies recent illness or trauma. Patient reports that she noticed some chest palpitations little prior to arrival but denies any chest pain or shortness of breath. She denies any fever, headaches, chest pain, shortness of breath, abdominal pain, nausea, vomit, change in bowel or bladder function, numbness, tingling, weakness in her extremities. She denies any history of DVT. She denies any swelling in her extremities Related Data Home Medications Medication Instructions Recorded Confirmed levothyroxine 175 mcg tablet 225 mcg PO DAILY 08/07/13 01/01/22 ibuprofen 800 mg tablet 800 mg PO TID PRN PRN #30 tablet 02/22/15 01/01/22 losartan 25 mg tablet 25 mg PO QAM 02/22/15 01/01/22 amlodipine 10 mg tablet 10 mg PO DAILY 08/15/19 01/01/22 empagliflozin 10 mg tablet 10 mg PO DAILY 01/01/22 01/01/22 (Jardiance) hydrochlorothiazide 25 mg tablet 25 mg PO DAILY 01/01/22 01/01/22 Previous Rx's Medication Instructions Recorded ibuprofen 800 mg tablet 800 mg PO TID PRN PRN #30 tablet 02/22/15 Allergies Allergy/AdvReac Type Severity Reaction Status Date / Time methimazole AdvReac Unknown Unverified 01/01/22 13:05 propylthiouracil AdvReac Unknown Unverified 01/01/22 13:05 General Stated Complaint: Palpitatns RONALD: 2 Review of Systems <SANDEEP Miller - Last Filed: 01/02/22 08:17> Constitutional Constitutional: Denies fever(s) and Denies weakness ENT Ears, Nose, Mouth, and Throat: Denies neck pain Cardiovascular Cardiovascular: Denies chest pain and Denies dyspnea Respiratory Respiratory: Denies dyspnea Gastrointestinal Gastrointestinal: Denies abdominal pain, Denies nausea and Denies vomiting Genitourinary Genitourinary: Denies hematuria and Denies dysuria Musculoskeletal Musculoskeletal: Denies neck pain, Denies numbness, Denies stiffness and Denies tingling Integumentary/Breasts Skin/Breast: Denies rash Neurologic Neurologic: Denies numbness, Denies tingling and Denies weakness [facility] <SANDEEP Miller - Last Filed: 01/02/22 08:17> All Active Problems (Updated 01/01/22 @ 18:43 by Susan Rowan) Pneumonia (Acute) Atherosclerosis (Acute) Social History Smoking/Tobacco Use Status: Current every day Smoking risk assessment performed?: Yes Alcohol Intake: never Drug use: Never Do you feel safe at home: Yes Do you feel safe in your relationship?: Yes Exam <SANDEEP Miller - Last Filed: 01/02/22 08:17> Const General: cooperative, healthy appearing, comfortable and no acute distress Orientation: alert and awake HENMT Head: normal to inspection, normocephalic and atraumatic Eyes Conjunctivae: conjunctivae normal Neck Neck: normal visual inspection, full ROM, trachea midline and supple Resp Effort & Inspection: normal respiratory effort and able to speak in complete sentences Auscultation: clear to auscultation bilaterally Cardio Rate: regular rate Rhythm: regular rhythm GI Inspection: normal to inspection Palpation: soft, not firm, no guarding, no pulsatile masses and nontender Back/Spine/Pelvis Back: No back tenderness Skin General skin exam: no rashes or lesions noted Neuro General: patient alert, patient awake, moves all extremities and no focal motor deficits Cognition: normal cognition Speech: speech normal Gait: antalgic Motor: muscle tone normal throughout Sensory Exam: no sensory deficits noted Extrem General: normal to inspection, full ROM (Movement of the right hip increases) and capillary refill normal Upper/lower leg/hip images: 1. Normal inspection. Diffuse tenderness. No erythema, warmth, induration or fluctuance. A single lymph node is present and tender. Normal femoral pulse, pedal pulse, capillary refill Psych Appearance: grossly normal Mental Status: mental status grossly normal Course <SANDEEP Miller - Last Filed: 01/02/22 08:17> Vital Signs Vital signs: Vital Signs Temperature 36.9 C 01/01/22 13:01 Pulse 111 H 01/01/22 13:01 Respiratory Rate 21 01/01/22 13:01 Blood Pressure 166/74 H 01/01/22 13:01 Pulse Oximetry 96 01/01/22 13:01 Temperature 36.9 C 01/01/22 13:01 Pulse 111 H 01/01/22 13:01 Respiratory Rate 16 01/01/22 13:58 Respiratory Effort 01/01/22 13:58 Respiratory Depth Normal 01/01/22 13:58 Respiratory Pattern Normal 01/01/22 13:58 Blood Pressure 166/74 H 01/01/22 13:01 Blood Pressure Position Supine 01/01/22 13:01 Pulse Oximetry 96 01/01/22 13:01 Oxygen Delivery Method Nasal Cannula 01/01/22 13:01 Pain Level 0 01/01/22 14:04 Sign Out <SANDEEP Miller - Last Filed: 01/02/22 08:17> Sign Out Data: Sign Out Comment: awaiting cardiac work up and CTA Last updated by Riccardo Lee PA at 01/01/22 16:05
[2022-01-01 15:39] LABS: Abs Immature Grans 0.04 10^3/uL (0.0-0.06); Absolute Basophil Count 0.08 10^3/uL (0.0-0.2); Absolute Eosinophil Count 0.27 10^3/uL (0.0-0.7); Absolute Lymphocyte Count 3.15 10^3/uL (1.2-3.4); Absolute Monocyte Count 0.78 10^3/uL (0.1-0.8); Absolute Neutrophil Count 6.31 10^3/uL (1.2-6.7); Basophils % 0.8; Eosinophils % 2.5; HCT 48.3 % (36.0-46.0); HGB 16.2 g/dL (11.2-15.7); Immature Grans % 0.4; Lymphocytes % 29.6; MCH 29.8 pg (27.0-33.0); MCHC 33.5 % (32.0-36.0); MPV 9.8 fL (8.0-11.0); Monocytes % 7.3; Neutrophils % 59.4; Nucleated RBC 0 %; Platelet Count 347 10^3/uL (130-400); RBC 5.43 10^6/uL (3.93-5.22); RDW 13.2 % (11.7-14.6); WBC 10.63 10^3/uL (4.4-10.8)
[2022-01-01 15:55] LABS: PTT Activated 27.2 sec (21.0-27.5); Prothrombin Time 9.9 sec (9.3-11.0)
[2022-01-01 16:02] LABS: ALT 23 U/L (14-59); AST 11 U/L (15-37); Albumin 3.9 g/dL (3.4-5.0); Alkaline Phosphatase 107 U/L (46-116); Anion Gap 8.7 mmol/L (3-11); BUN 18 mg/dL (7-18); Bilirubin, Total 0.3 mg/dL (0.2-1.0); CO2 28.3 mmol/L (21.0-32.0); CREATININE 0.7 mg/dL (0.55-1.02); Calcium 9.5 mg/dL (8.5-10.1); Chloride 101 mmol/L (98-107); Glucose 94 mg/dL (74-106); Magnesium 2.2 mg/dL (1.8-2.4); Sodium 138 mmol/L (136-145); TSH (W/Ref FT4) 0.96 uIU/mL (0.36-3.74); Total Protein 8.1 g/dL (6.4-8.2); Troponin I < 50 ng/L (<or=60)
[2022-01-01 16:21] LABS: D-Dimer 333 ng/mlFEU (<500)
[2022-01-01] MEDS: Omnipaque 350 MG/ML 100 ML BTL 150 ML IJ (16:39)
[2022-01-01] MEDS: Normal Saline Flush 10 ML SYR IVP (16:39)
--- NOTE | 2022-01-01 16:46 | DI.VRAD_ITS ---
PROCEDURE INFORMATION: Exam: XR Chest Exam date and time: 01/01/2022 2:24 PM Age: 46 years old Clinical indication: Other: Palpataions TECHNIQUE: Imaging protocol: XR of the chest. Views: 2 views. COMPARISON: CR XR CHEST 2V PA LATERAL 01/16/2020 12:56 PM FINDINGS: Lungs: Clear lungs. Pleural spaces: No sizable pleural effusion. No pneumothorax. Heart/Mediastinum: Cardiomediastinal silhouette is within normal limits. Bones/joints: No acute displaced fracture or dislocation. IMPRESSION: No acute cardiopulmonary process. Dictated and Authenticated by: Jonatan Ireland MD. Ordering:JIM Gu MD
[2022-01-01] MEDS: Potassium Chloride 20 MEQ TABCR 40 MEQ PO (17:20)
[2022-01-01 18:50] LABS: Troponin I < 50 ng/L (<or=60)
== END 2022-01-01 18:58 | disposition home or self-care (01) ==
PROVIDERS: Physician Assistant; Emergency Provider Registered Nurse Emergency; PCP Family Medicine
DX: I70.0 Atherosclerosis of aorta (principal); R00.2 Palpitations; F17.200 Nicotine dependence, unspecified, uncomplicated; M25.551 Pain in right hip; R10.31 Right lower quadrant pain
CPT/HCPCS: 36415; 75635; 80053; 93005; 99285; 71046; 83735; 84443; 84484; 85025; 85379; 85610; 85730; 93010; 99284; J3490

== ENCOUNTER 2022-09-21 17:22 | Outpatient (REF) | payer BC, SELFPAY ==
[2022-09-21 15:49] LABS: Calculated LDL 213 mg/dL (<100); Cholesterol 285 mg/dL (<200); HDL Cholesterol 42 mg/dL (40-60); Triglyceride 153 mg/dL (<150)
== END 2022-09-21 17:23 | disposition home or self-care (01) ==
LOC: LBN 17:22
PROVIDERS: PCP Family Medicine; Visit Provider Student in an Organized Health Care Education/Training Program
DX: E78.01 Familial hypercholesterolemia (principal)
CPT/HCPCS: 80061

== ENCOUNTER 2022-10-12 23:32 | Outpatient (REF) | payer BC, SELFPAY | END 2022-10-12 23:33 | disposition home or self-care (01) | LOC: LBN 23:32 | PROVIDERS: PCP Family Medicine; Visit Provider Physician Assistant Medical | DX: L29.2 Pruritus vulvae (principal) | CPT/HCPCS: 87480; 87510; 87660 ==

== ENCOUNTER 2023-02-22 16:16 | Outpatient (REF) | payer BC, SELFPAY ==
[2023-02-22 20:26] LABS: Hemoglobin A1C 6.2 % (<5.7)
[2023-02-22 20:36] LABS: TSH 6.52 uIU/mL (0.36-3.74)
[2023-03-01 20:20] LABS: Thyroid Stimulating Immunoglob 2.6 TSI index (<=1.3)
== END 2023-02-22 16:17 | disposition home or self-care (01) ==
LOC: NCHCN 16:16
PROVIDERS: PCP Family Medicine; Visit Provider Physician Assistant Medical
DX: E11.9 Type 2 diabetes mellitus without complications (principal); E03.9 Hypothyroidism, unspecified; H57.89 Other specified disorders of eye and adnexa; E07.89 Other specified disorders of thyroid
CPT/HCPCS: 83036; 84443; 84445

== ENCOUNTER 2023-07-14 20:04 | Emergency (ER) | payer BC, SELFPAY ==
[2023-07-14 20:14] VITALS: BP 158/88; PULSE 85; RESP 16; TEMP 36.6; O2SAT 98
--- NOTE | 2023-07-14 20:46 | ED.GENADUL_ITS ---
Discharge Plan Disposition Patient Disposition: Home Condition: Good Discharge Details Clinical Impression: Laryngitis Primary Care Provider: Breanna Reyes ED Provider: Steven Jim Home Meds and New Rx's Prescriptions: No Action levothyroxine 175 MCG tablet 225 mcg PO DAILY losartan 25 MG tablet 25 mg PO QAM ibuprofen 800 MG tablet 800 mg PO TID PRN PRNQty: 30 0RF amlodipine 10 mg Tablet 10 mg PO DAILY hydrochlorothiazide 25 mg tablet 25 mg PO DAILY Patient Comments: TAKE 1 TABLET BY MOUTH ONCE DAILY Jardiance 10 mg tablet 10 mg PO DAILY Patient Comments: Take 1 tablet by mouth once a day Discharge Instructions Instructions: Laryngitis (ED) Additional Instructions: At this time your strep test is negative for evidence of bacterial infection from strep. Please take Tylenol and Motrin as needed for pain. The cause of your sore throat is likely a viral etiology. If you notice any worsening of your symptoms, or any new symptoms such as vomiting, diarrhea, fever, chills, shortness of breath, chest pain, numbness, weakness, or fainting , please return immediately to the emergency department for reevaluation. Please follow up with your primary care provider as soon as possible for reassessment and reevaluation. As always, it was a pleasure participating in your medical care today. Referrals: Breanna Reyes PA [Primary Care Provider] - Medical Decision Making 48-year-old female presents today for evaluation of sore throat. Patient states that it began about a day and a half ago. Her family member does have mldk-dcay-ckq-mouth. Patient admits to mild soreness. She denies any difficulty swallowing, drinking breathing or speaking. No numbness or tingling. No chest pain. No lesions. No other complaints at this time. Exam demonstrates well-appearing female, minimal erythema in the posterior oropharynx. No tonsillar enlargement, no tonsillar exudate. Symptoms inconsistent with ffol-fnhv-ddt-mouth lesions. No evidence of tonsillitis. Strep test negative. Will send for culture. Symptoms most likely secondary to a viral etiology. Discussed red flags for which to return. I have extensively reviewed the treatment plan and discharge instructions with the patient. I have addressed all patient concerns at this time. The patient was made aware of what symptoms to monitor for that would warrant a return to the emergency department. Discussed the plan with the patient, they demonstrate verbal understanding and agreement with our assessment and plan at this time. The documentation in this chart was dictated using [email or web address] dictation software. Please excuse any dictation errors. HPI General Date/Time Provider Initiated Documentation: 07/14/23 20:22 . HPI Narrative: 48-year-old female presents today for evaluation of sore throat. Patient states that it began about a day and a half ago. Her family member does have zobu-kuza-oyd-mouth. Patient admits to mild soreness. She denies any difficulty swallowing, drinking breathing or speaking. No numbness or tingling. No chest pain. No lesions. No other complaints at this time. Related Data Home Medications Medication Instructions Recorded Confirmed levothyroxine 175 mcg tablet 225 mcg PO DAILY 08/07/13 07/14/23 ibuprofen 800 mg tablet 800 mg PO TID PRN PRN ##30 02/22/15 07/14/23 losartan 25 mg tablet 25 mg PO QAM 02/22/15 07/14/23 amlodipine 10 mg tablet 10 mg PO DAILY 08/15/19 07/14/23 empagliflozin 10 mg tablet 10 mg PO DAILY 01/01/22 07/14/23 (Jardiance) hydrochlorothiazide 25 mg tablet 25 mg PO DAILY 01/01/22 07/14/23 Previous Rx's Medication Instructions Recorded ibuprofen 800 mg tablet 800 mg PO TID PRN PRN ##30 02/22/15 Allergies Allergy/AdvReac Type Severity Reaction Status Date / Time methimazole AdvReac Unknown Unverified 07/14/23 20:18 propylthiouracil AdvReac Unknown Unverified 07/14/23 20:18 General Stated Complaint: Sorethroat RONALD: 5 Review of Systems All systems reviewed & are unremarkable except as noted in HPI and below PFSH All Active Problems (Updated 07/14/23 @ 20:51 by Steven Jim DO) Pneumonia (Acute) Laryngitis (Acute) Social History Smoking/Tobacco Use Status: Current every day Smoking risk assessment performed?: Yes Alcohol Intake: never Drug use: Never Do you feel safe at home: Yes Do you feel safe in your relationship?: Yes Exam Narrative Exam Narrative: 1.Const: Well-nourished, Well-developed, appearing stated age 2.Eyes: PERRL, no conjunctival injection, and symmetrical lids. 3.ENT: Atraumatic external nose and ears. Moist MM. Neck: Symmetric, trachea midline, No thyromegaly. Minimal erythema in the posterior oropharynx. No lesions. No tonsillar exudate or enlargement. 4.CVS: +S1/S2, No murmurs or gallops. Peripheral pulses 2+ and equal in all extremities. Brisk capillary refill in all extremities. 5.RESP: Unlabored respiratory effort. Clear to auscultation bilaterally. No wheezes rales or rhonchi 6.GI: Soft, Nontender/Nondistended, No hepatosplenomegaly. No guarding or rebound. 7.MSK: Normocephalic/Atraumatic, Extremities w/o deformity or ttp No cyanosis or clubbing, Normal movement of all extremities 8.Skin: Warm, Dry. No rashes or lesions. 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 Sensation grossly intact, no focal neurologic deficits. 10.Psych: (AAO) x3. Appropriate mood and affect Course Vital Signs Vital signs: Vital Signs Temperature 36.6 C 07/14/23 20:14 Pulse 85 07/14/23 20:14 Respiratory Rate 16 07/14/23 20:14 Blood Pressure 158/88 H 07/14/23 20:14 Pulse Oximetry 98 07/14/23 20:14 Temperature 36.6 C 07/14/23 20:14 Temperature Source Oral 07/14/23 20:14 Pulse 85 07/14/23 20:14 Respiratory Rate 16 07/14/23 20:14 Respiratory Effort Normal 07/14/23 20:18 Blood Pressure 158/88 H 07/14/23 20:14 Blood Pressure Position Sitting 07/14/23 20:14 Pulse Oximetry 98 07/14/23 20:14 Oxygen Delivery Method Room Air 07/14/23 20:14 Oxygen Flow Rate 0 07/14/23 20:14 Pain Level 6 07/14/23 20:14
== END 2023-07-14 22:52 | disposition home or self-care (01) ==
PROVIDERS: Emergency Provider Student in an Organized Health Care Education/Training Program; PCP Physician Assistant Medical
DX: J02.9 Acute pharyngitis, unspecified (principal)
CPT/HCPCS: 87880; 99282; 87081; 99283

== ENCOUNTER 2024-02-02 11:27 | Outpatient (REF) | payer BC, SELFPAY ==
[2024-02-02 15:53] LABS: TSH (W/Ref FT4) 2.09 uIU/mL (0.36-3.74)
== END 2024-02-02 11:28 | disposition home or self-care (01) ==
LOC: NCHCN 11:27
PROVIDERS: PCP Physician Assistant Medical; Visit Provider Physician Assistant Medical
DX: E03.9 Hypothyroidism, unspecified (principal)
CPT/HCPCS: 84443

== ENCOUNTER 2024-09-01 16:13 | Emergency (ER) | payer BC, SELFPAY ==
[2024-09-01 16:18] VITALS: BP 144/84; PULSE 96; RESP 14; TEMP 37.2; O2SAT 95
--- NOTE | 2024-09-01 16:30 | DI.RAD_ITS ---
Exam(s) XR RIBS RT W PA LAT CHEST EXAM: XR RIBS RT W PA LAT CHEST CLINICAL HISTORY: R anterior rib pain s/p blunt trauma TECHNIQUE: 2D digital imaging was performed. COMPARISON: CR,XR XR CHEST 2V PA LATERAL from 01/01/2022 FINDINGS: RIBS 3 VIEWS-RIGHT There are no obvious acute rib fractures evident. No lytic rib lesions identified. CXR- 2 VIEWS: No lung contusion or pneumothorax. There is no pleural effusion evident. Heart size is normal and there is no significant mediastinal widening. IMPRESSION: 1. No obvious rib fractures evident. Also no significant rib lesions. 2. No ipsilateral lung nor pleural abnormality evident. No pneumothorax. DATA REPOSITORY: RADIATION DOSE DELIVERED:
--- NOTE | 2024-09-01 16:34 | W.ED.GENAD ---
Discharge Plan Disposition Patient Disposition: Home Discharge Details Clinical Impression: Right-sided chest wall pain Primary Care Provider: Breanna Reyes ED Provider: Jen Bower Home Meds and New Rx's Prescriptions: No Action levothyroxine 175 MCG tablet 250 mcg PO DAILY losartan 25 MG tablet 25 mg PO QAM ibuprofen 800 MG tablet 800 mg PO TID PRN PRNQty: 30 0RF amlodipine 10 mg Tablet 10 mg PO DAILY Ozempic 0.25 mg or 0.5 mg (2 mg/3 mL) pen injector 0.5 mg SUBCUT .weekly Patient Comments: INJECT 0.25MG SUBCUTANEOUSLY ONCE EVERY WEEK FOR 4 WEEKS, THEN INCREASE TO 0.5MG WEEKLY dorzolamide-timolol 22.3-6.8 mg/mL drops 1 drp ophthalmic (eye) BID Patient Comments: INSTILL 1 DROP INTO EACH EYE TWICE DAILY colesevelam 625 mg tablet 1,250 mg PO BID Patient Comments: TAKE 2 TABLETS BY MOUTH ONCE DAILY losartan 100 mg tablet 100 mg PO DAILY Patient Comments: TAKE 1 TABLET BY MOUTH ONCE DAILY spironolactone 25 mg tablet 25 mg PO DAILY Patient Comments: TAKE 1 TABLET BY MOUTH ONCE DAILY Repatha SureClick 140 mg/mL pen injector 140 mg SUBCUT .[id number] carvedilol 6.25 mg tablet 6.25 mg PO DAILY hydrochlorothiazide 25 mg tablet 25 mg PO DAILY Patient Comments: TAKE 1 TABLET BY MOUTH ONCE DAILY Jardiance 10 mg tablet 10 mg PO DAILY Patient Comments: Take 1 tablet by mouth once a day Discharge Instructions Instructions: Blunt Chest Trauma ED Additional Instructions: Please call your primary care provider first thing in the morning to schedule follow-up appointment within the next 1-2 weeks. Your chest x-ray did not show any obvious rib fractures, however they need some non-radiographically evident fractures that are causing you pain. I am recommending that you use the incentive spirometer to help keep your lungs well-inflated. You may find that you use of Aleve 500 mg every 12 hours may be more helpful than ibuprofen, you may use this with Tylenol 650 mg every 6 hours. Use a pillow to help splint your chest when you are deep breathing. Avoid twisting or bending, as this will exacerbate the pain. Return to emergency care if you develop new fevers associated with chest pain, difficulty breathing, coughing up blood, or if you are very worried you need to be rechecked again immediately Referrals: Breanna Reyes PA [Primary Care Provider] - [facility] General Date/Time Provider Initiated Documentation: 09/01/24 16:15. HPI Narrative: 49-year-old female with history of prediabetes presents to the emergency department today for evaluation of right lower rib pain. She reports that 1 week ago she fell through the floor. There was a soft spot, causing her to land on the baby gate on her right side. She initially had some redness and abrasion there, but that has since faded. She reports pain with deep inspiration. She has also had congestion and cough for the last week, thinks she is coming down with a cold. She denies fever/chills, dizziness/presyncope, difficulty breathing, abdominal pain. No other injuries reported. She is not on any anticoagulants. No significant cardiac or lung history. She is taking some ibuprofen without much improvement in symptoms, last dose yesterday. Physical exam reassuring. Tenderness to palpation along anterior lower ribs, no flail chest or overlying abrasions/ecchymosis. Easy work of breathing, lung sounds clear bilaterally. Normal heart sounds. Abdomen is soft, nondistended, nontender to palpation. History and presentation was consistent with fracture, although MSK injury also likely.. X-ray obtained to rule out pneumothorax, pneumonia, or complication of rib fracture. No red flags concerning for significant trauma requiring CT imaging, EKG, or blood work. While in the emergency department Theodore received IM Toradol for discomfort with some moderate improvement in discomfort. X-ray reassuring, no lung contusion, pneumothorax, pleural effusion, or obvious rib fractures. Likely chest wall strain, though not radiographically evident fracture also possible. Reviewed discharge instructions with patient, including use of incentive spirometer, splinting, pain control, and red flags indicating need for return to emergency care. Advised her that symptoms may last 6 to 8 weeks for fracture, recommend follow-up with PCP for management. Related Data Home Medications ?Medication ?Instructions ?Recorded ?Confirmed levothyroxine 175 mcg tablet 250 mcg PO DAILY 08/07/13 09/01/24 ibuprofen 800 mg tablet 800 mg PO TID PRN PRN ##30 02/22/15 09/01/24 losartan 25 mg tablet 25 mg PO QAM 02/22/15 09/01/24 amlodipine 10 mg tablet 10 mg PO DAILY 08/15/19 09/01/24 empagliflozin 10 mg tablet 10 mg PO DAILY 01/01/22 09/01/24 (Jardiance) hydrochlorothiazide 25 mg tablet 25 mg PO DAILY 01/01/22 09/01/24 carvedilol 6.25 mg tablet 6.25 mg PO DAILY 09/01/24 09/01/24 colesevelam 625 mg tablet 1,250 mg PO BID 09/01/24 09/01/24 dorzolamide 22.3 mg-timolol 6.8 1 drp ophthalmic (eye) BID 09/01/24 09/01/24 mg/mL eye drops evolocumab 140 mg/mL subcutaneous 140 mg subcut .[id number] 09/01/24 09/01/24 pen injector (Repatha SureClick) losartan 100 mg tablet 100 mg PO DAILY 09/01/24 09/01/24 semaglutide 0.25 mg or 0.5 mg (2 0.5 mg subcut .weekly 09/01/24 09/01/24 mg/3 mL) subcutaneous pen injector (Ozempic) spironolactone 25 mg tablet 25 mg PO DAILY 09/01/24 09/01/24 Previous Rx's ?Medication ?Instructions ?Recorded ibuprofen 800 mg tablet 800 mg PO TID PRN PRN ##30 02/22/15 Allergies Allergy/AdvReac Type Severity Reaction Status Date / Time methimazole AdvReac Unknown Unknown Unverified 09/01/24 16:23 propylthiouracil AdvReac Unknown Unknown Unverified 09/01/24 16:23 General Stated Complaint: Chest/Rib RONALD: 4 Review of Systems Narrative: see HPI Exam Const General: cooperative, healthy appearing, comfortable, no acute distress, well developed and well groomed Nutritional Appearance: average body habitus Orientation: alert and oriented x3 Chest Chest: tenderness rib (R lower anterior ribs) Resp Effort & Inspection: normal respiratory effort and able to speak in complete sentences Auscultation: clear to auscultation bilaterally Cardio Rate: regular rate Rhythm: regular rhythm GI Inspection: normal to inspection, no abdominal wall ecchymosis and non-distended Palpation: soft, not firm, no guarding and nontender Skin General skin exam: no rashes or lesions noted Trauma: abrasion (healing abrasion to L ramos) Neuro General: patient alert and gait normal Course Vital Signs Vital signs: Vital Signs Temperature 37.2 C 09/01/24 16:18 Pulse 96 H 09/01/24 16:18 Respiratory Rate 14 09/01/24 16:18 Blood Pressure 144/84 H 09/01/24 16:18 Pulse Oximetry 95 09/01/24 16:18 Temperature 37.2 C 09/01/24 16:18 Temperature Source Oral 09/01/24 16:18 Pulse 96 H 09/01/24 16:18 Respiratory Rate 14 09/01/24 16:18 Blood Pressure 144/84 H 09/01/24 16:18 Blood Pressure Position Sitting 09/01/24 16:18 Pulse Oximetry 95 09/01/24 16:18 Oxygen Delivery Method Room Air 09/01/24 16:18 Oxygen Flow Rate 0 09/01/24 16:18 Pain Level 8 09/01/24 16:18 Medical Decision Making Imaging Data Radiologic Study: Radiologist's impression: Exam(s) XR RIBS RT W PA LAT CHEST EXAM: XR RIBS RT W PA LAT CHEST CLINICAL HISTORY: R anterior rib pain s/p blunt trauma TECHNIQUE: 2D digital imaging was performed. COMPARISON: CR,XR XR CHEST 2V PA LATERAL from 01/01/2022 FINDINGS: RIBS 3 VIEWS-RIGHT There are no obvious acute rib fractures evident. No lytic rib lesions identified. CXR- 2 VIEWS: No lung contusion or pneumothorax. There is no pleural effusion evident. Heart size is normal and there is no significant mediastinal widening. IMPRESSION: 1. No obvious rib fractures evident. Also no significant rib lesions. 2. No ipsilateral lung nor pleural abnormality evident. No pneumothorax. Quality:[facility] Related Social Needs: No Data to Display PFSH All Active Problems (Updated 09/01/24 @ 19:18 by Jen Brown) Right-sided chest wall pain (Acute) Pneumonia (Acute) Social History Smoking/Tobacco Use Status: Current every day Smoking risk assessment performed?: Yes Alcohol Intake: never Drug use: Never Do you feel safe at home: Yes Do you feel safe in your relationship?: Yes
[2024-09-01] MEDS: Ketorolac 30 MG/ML VIAL IM (17:04)
[2024-09-01 18:33] VITALS: BP 139/86; PULSE 89; RESP 17; TEMP 36.6; O2SAT 97
--- NOTE | 2024-09-01 19:45 | DI.VRAD_ITS ---
PROCEDURE INFORMATION: Exam: XR Right Ribs Exam date and time: 09/01/2024 5:39 PM Age: 49 years old Clinical indication: Chest wall pain and right-sided; Patient HX: R anterior rib pain S/P blunt trauma TECHNIQUE: Imaging protocol: Radiologic exam of the right ribs. Views: 2 views. COMPARISON: CR XR CHEST 2V PA LATERAL 01/01/2022 4:43 PM FINDINGS: Bones/joints: Normal. Soft tissues: Normal. IMPRESSION: No evidence for acute abnormality in the chest. PROCEDURE INFORMATION: Exam: XR Chest Exam date and time: 09/01/2024 5:39 PM Age: 49 years old Clinical indication: Chest wall pain and right-sided; Patient HX: R anterior rib pain S/P blunt trauma TECHNIQUE: Imaging protocol: Radiologic exam of the chest. Views: 2 views. COMPARISON: CR XR CHEST 2V PA LATERAL 01/01/2022 4:43 PM FINDINGS: Lungs: Unremarkable. No consolidation. Pleural spaces: Unremarkable. No pleural effusion. No pneumothorax. Heart/Mediastinum: Unremarkable. No cardiomegaly. Bones/joints: Right lower rib metallic marker noted. Alignment is anatomic. No evidence for fracture. Organs: Status post cholecystectomy. IMPRESSION: No evidence for fracture. Dictated and Authenticated by: Alexsandra Veliz MD. Ordering:BERT Li MD
== END 2024-09-01 19:24 | disposition home or self-care (01) ==
PROVIDERS: Emergency Provider Nurse Practitioner Family; PCP Physician Assistant Medical
DX: R07.89 Other chest pain (principal); F17.200 Nicotine dependence, unspecified, uncomplicated
CPT/HCPCS: 96372; 99284; 71046; 71100; 99283; J1885

== ENCOUNTER 2024-10-11 00:29 | Outpatient (CLI) | payer BC, SELFPAY ==
--- NOTE | 2024-10-11 | DI.MAMMO_ITS ---
Exam(s) MAMMO SCREENING EXAM: MAMMO SCREENING CLINICAL HISTORY: SCREENING MAMMO Z12.31 TECHNIQUE: Bilateral full field digital CC and MLO mammographic images were obtained with 3D tomosyn thesis and utilizing computer aided detection (CAD). COMPARISON: Available for comparison. FINDINGS: Masses/Architectural Distortion: None seen. Microcalcifications: No suspicious pleomorphic-type are seen. Skin Thickening/Nipple Retraction: None. IMPRESSION: 1. No significant interval change with no specific features of malignancy noted. 2. Unless there is more urgent need, screening mammography is recommended, as per [employer] guidelines. BI-RADS Category 1 - Negative Breast Density - Category A - Almost entirely fatty Breast density category C or D implies that the patient has dense breast tissue. Dense breast tissue is very common and is not abnormal but dense breast tissue can make it harder to find cancer on a ma mmogram. Also, dense breast tissue may increase their breast cancer risk. This information about the result of the mammogram report was provided to the patient to raise their awareness. Use this report when you speak with the patient about their risks for breast cancer, which includes their family hist ory. At that time, you may recommend for more screening tests (Ultrasound or MRI) as they might be us eful based on their risk. A negative radiographic report should not delay biopsy if a dominant or clinically suspicious mass is present. Up to ten percent of cancers are not identified on mammography. A negative report may reinforce clinical impression. Adenosis and dense breasts may obscure an underlying neoplasm. False positive reports average 6 to 10%. Patient will receive a letter notifying them of these results.
== END 2024-10-11 00:49 ==
LOC: DI 00:29
PROVIDERS: PCP Physician Assistant Medical; Visit Provider Physician Assistant Medical
DX: Z12.31 Encounter for screening mammogram for malignant neoplasm of breast (principal); R92.313 Mammographic fatty tissue density, bilateral breasts
CPT/HCPCS: 77063; 77067

== ENCOUNTER 2024-12-23 23:37 | Emergency (ER) | payer BC, SELFPAY ==
[2024-12-23 23:49] VITALS: BP 177/71; PULSE 101; RESP 22; TEMP 36.9; O2SAT 100
[2024-12-24 00:06] VITALS: BP 145/78; PULSE 90; RESP 16; TEMP 36.9; O2SAT 97
--- NOTE | 2024-12-24 00:15 | W.ED.GENAD ---
Discharge Plan Disposition Patient Disposition: Home Condition: Good Discharge Details Clinical Impression: Lumbago Primary Care Provider: Breanna Reyes ED Provider: Steven Jim Home Meds and New Rx's Prescriptions: New cyclobenzaprine 10 mg tablet 10 mg PO TID Qty: 14 0RF prednisone 50 mg tablet 50 mg PO DAILY Qty: 5 0RF lidocaine [Lidoderm] 5 % adhesive patch,medicated 1 patch Topical Q24H Qty: 15 0RF No Action levothyroxine 175 MCG tablet 250 mcg PO DAILY losartan 25 MG tablet 25 mg PO QAM ibuprofen 800 MG tablet 800 mg PO TID PRN PRNQty: 30 0RF amlodipine 10 mg Tablet 10 mg PO DAILY Ozempic 0.25 mg or 0.5 mg (2 mg/3 mL) pen injector 0.5 mg SUBCUT .weekly Patient Comments: INJECT 0.25MG SUBCUTANEOUSLY ONCE EVERY WEEK FOR 4 WEEKS, THEN INCREASE TO 0.5MG WEEKLY dorzolamide-timolol 22.3-6.8 mg/mL drops 1 drp ophthalmic (eye) BID Patient Comments: INSTILL 1 DROP INTO EACH EYE TWICE DAILY colesevelam 625 mg tablet 1,250 mg PO BID Patient Comments: TAKE 2 TABLETS BY MOUTH ONCE DAILY losartan 100 mg tablet 100 mg PO DAILY Patient Comments: TAKE 1 TABLET BY MOUTH ONCE DAILY spironolactone 25 mg tablet 25 mg PO DAILY Patient Comments: TAKE 1 TABLET BY MOUTH ONCE DAILY Repatha SureClick 140 mg/mL pen injector 140 mg SUBCUT .[id number] carvedilol 6.25 mg tablet 6.25 mg PO DAILY hydrochlorothiazide 25 mg tablet 25 mg PO DAILY Patient Comments: TAKE 1 TABLET BY MOUTH ONCE DAILY Jardiance 10 mg tablet 10 mg PO DAILY Patient Comments: Take 1 tablet by mouth once a day Discharge Instructions Instructions: Low Back Pain ED Additional Instructions: At this time your signs and symptoms are clinically consistent with a back sprain. This can cause significant pain and take a fair bit of time to heal. I expect 1 to 2 months for potential resolution. In the meantime do not lift anything greater than 5 pounds for the next 2 weeks. Avoid any significant vigorous physical activity. Perform easy gentle regular activities at home without any significant bending or lifting. Please take the steroids as directed. You have been given a prescription for Lidoderm patch. If your insurance does not cover this you can get [id number] Lidoderm patches at 4% which are almost just as effective. Please take the Flexeril as directed but do not take it when driving or operating any vehicles or heavy machinery, swimming, taking long baths, or operating firearms. Please use a heating pad as often as possible on your back. Perform daily gentle stretches on your back. Please continue to take the Tylenol and Motrin. You can take 1000 mg of Tylenol every 6 hours and 600 mg of ibuprofen every 6 hours. If you notice any worsening of your symptoms, or any new symptoms such as vomiting, diarrhea, fever, chills, shortness of breath, chest pain, numbness or tingling in your groin or legs, weakness in your legs, loss of control for your bowels or bladder, or fainting , please return immediately to the emergency department for reevaluation. Please follow up with your primary care provider as soon as possible for reassessment and reevaluation. As always, it was a pleasure participating in your medical care today. Stand Alone Forms: Work Release Referrals: Breanna Reyes PA [Primary Care Provider] - [facility] General Date/Time Provider Initiated Documentation: 12/23/24 23:51. HPI Narrative: This is a pleasant 49-year-old female with a past medical history of back pain, who presents today for right-sided low back pain. Patient states that she was out shoveling snow yesterday, and then in the evening she developed notable spasm in her back that radiated down to her right leg to the knee. She took some old cyclobenzaprine without any significant improvement. She took Tylenol this morning without improvement. Pain is made worse with movement and bending. Patient denies any saddle anesthesia, numbness or tingling in the groin, change in sensation when wiping. Patient denies any change in sensation during sexual intercourse, bowel or bladder incontinence, leakage, or retention. Patient denies any weakness in the lower extremities, atypical falls or imbalance. No other complaints at this time. No other modifying factors. Related Data Home Medications ?Medication ?Instructions ?Recorded ?Confirmed levothyroxine 175 mcg tablet 250 mcg PO DAILY 08/07/13 12/24/24 ibuprofen 800 mg tablet 800 mg PO TID PRN PRN ##30 02/22/15 12/24/24 losartan 25 mg tablet 25 mg PO QAM 02/22/15 12/24/24 amlodipine 10 mg tablet 10 mg PO DAILY 08/15/19 12/24/24 empagliflozin 10 mg tablet 10 mg PO DAILY 01/01/22 12/24/24 (Jardiance) hydrochlorothiazide 25 mg tablet 25 mg PO DAILY 01/01/22 12/24/24 carvedilol 6.25 mg tablet 6.25 mg PO DAILY 09/01/24 12/24/24 colesevelam 625 mg tablet 1,250 mg PO BID 09/01/24 12/24/24 dorzolamide 22.3 mg-timolol 6.8 1 drp ophthalmic (eye) BID 09/01/24 12/24/24 mg/mL eye drops evolocumab 140 mg/mL subcutaneous 140 mg subcut .[id number] 09/01/24 12/24/24 pen injector (Eloisa Colon) losartan 100 mg tablet 100 mg PO DAILY 09/01/24 12/24/24 semaglutide 0.25 mg or 0.5 mg (2 0.5 mg subcut .weekly 09/01/24 12/24/24 mg/3 mL) subcutaneous pen injector (Ozempic) spironolactone 25 mg tablet 25 mg PO DAILY 09/01/24 12/24/24 cyclobenzaprine 10 mg tablet 10 mg PO TID #14 tabs 12/24/24 lidocaine 5 % topical patch 1 patch topical Q24H #15 ea 12/24/24 (Lidoderm) prednisone 50 mg tablet 50 mg PO DAILY #5 tabs 12/24/24 Previous Rx's ?Medication ?Instructions ?Recorded ibuprofen 800 mg tablet 800 mg PO TID PRN PRN ##30 02/22/15 cyclobenzaprine 10 mg tablet 10 mg PO TID #14 tabs 12/24/24 lidocaine 5 % topical patch 1 patch topical Q24H #15 ea 12/24/24 (Lidoderm) prednisone 50 mg tablet 50 mg PO DAILY #5 tabs 12/24/24 Allergies Allergy/AdvReac Type Severity Reaction Status Date / Time methimazole AdvReac Unknown Unknown Unverified 12/24/24 00:03 propylthiouracil AdvReac Unknown Unknown Unverified 12/24/24 00:03 General Stated Complaint: Nk/Back Pain RONALD: 4 Exam Narrative Exam Narrative: 1.Const: Well-nourished, Well-developed, appearing stated age 2.Eyes: PERRL, no conjunctival injection, and symmetrical lids. 3.ENT: Atraumatic external nose and ears. Moist MM. Neck: Symmetric, trachea midline, No thyromegaly. 4.CVS: +S1/S2, Peripheral pulses 2+ and equal in all extremities. Brisk capillary refill in all extremities. 5.RESP: Unlabored respiratory effort. Clear to auscultation bilaterally. No wheezes rales or rhonchi 6.GI: Soft, Nontender/Nondistended, No hepatosplenomegaly. No guarding or rebound. 7.MSK: Normocephalic/Atraumatic, Extremities w/o deformity or ttp No cyanosis or clubbing, Normal movement of all extremities No midline tenderness to palpation over the CTLS spine. Notable right sided lumbar paraspinal spasm. Normal ROM in flexion, extension, side bend, and rotation. Patient has +5 out of 5 strength in the lower extremities in dorsiflexion and plantarflexion, knee flexion and extension, hip flexion and extension. Normal strength for dorsiflexion and plantar flexion of the great toe bilaterally. There is +2 over 2 dorsalis pedis pulses bilaterally. There is normal sensation to the skin with light touch at the foot, knee, and hip. Normal saddle sensation. Good sensation over the deep sural nerve area bilaterally. Rectal exam demonstrates good rectal tone with excellent eduardo-rectal sensation. Reflexes are +2 over 4 in the patellar reflex bilaterally. +5 out of 5 strength in the medial, ulnar, radial nerve distribution bilaterally in the hands as well as intact light touch sensation to these dermatomes on the hands 8.Skin: Warm, Dry. No rashes or lesions. 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 Sensation grossly intact, no focal neurologic deficits. 10.Psych: (AAO) x3. Appropriate mood and affect Course Vital Signs Vital signs: Vital Signs Temperature 36.9 C 12/23/24 23:49 Pulse 101 H 12/23/24 23:49 Respiratory Rate 22 12/23/24 23:49 Blood Pressure 177/71 H 12/23/24 23:49 Pulse Oximetry 100 12/23/24 23:49 Temperature 36.9 C 12/24/24 00:06 Temperature Source Temporal Artery Scan 12/24/24 00:06 Pulse 90 12/24/24 00:06 Respiratory Rate 16 12/24/24 00:06 Blood Pressure 145/78 H 12/24/24 00:06 Blood Pressure Position Sitting 12/24/24 00:06 Pulse Oximetry 97 12/24/24 00:06 Oxygen Delivery Method Room Air 12/24/24 00:06 Oxygen Flow Rate 0 12/24/24 00:06 Pain Level 10 12/24/24 00:06 Comment pain location- lower R back/ R leg 12/23/24 23:49 Medical Decision Making This is a pleasant 49-year-old female with a past medical history of back pain, who presents today for right-sided low back pain. Patient states that she was out shoveling snow yesterday, and then in the evening she developed notable spasm in her back that radiated down to her right leg to the knee. She took some old cyclobenzaprine without any significant improvement. She took Tylenol this morning without improvement. Pain is made worse with movement and bending. Patient denies any saddle anesthesia, numbness or tingling in the groin, change in sensation when wiping. Patient denies any change in sensation during sexual intercourse, bowel or bladder incontinence, leakage, or retention. Patient denies any weakness in the lower extremities, atypical falls or imbalance. No other complaints at this time. No other modifying factors. Exam demonstrates right-sided paraspinal spasm, no midline tenderness. Normal reflexes. No evidence of cauda equina syndrome, no saddle anesthesia, she has normal rectal tone. No concerning red flags otherwise. No history of IV drug use to suggest paraspinal abscess. No history of fall or trauma to suggest osseous fracture or abnormality. Symptoms appear consistent with mild right-sided lumbar muscle spasm and mild radiculopathy. No indication for emergent imaging or MRI at this time. Will give Toradol Valium Lidoderm patch Tylenol and Solu-Medrol for pain control. Will do outpatient muscle relaxant, Lidoderm patch and NSAID therapy. Discussed red flags which to return. I have extensively reviewed the treatment plan and discharge instructions with the patient and their family. I have addressed all patient concerns at this time. The patient and family was made aware of what symptoms to monitor for that would warrant a return to the emergency department. Discussed the plan with the patient and family, they demonstrate verbal understanding and agreement with our assessment and plan at this time. The documentation in this chart was dictated using inEarth dictation software. Please excuse any dictation errors. Quality:SDOH Health Related Social Needs: No Data to Display PFSH All Active Problems (Updated 12/24/24 @ 00:16 by Steven Jim DO) Lumbago (Acute) Pneumonia (Acute) Social History Smoking/Tobacco Use Status: Current every day Smoking risk assessment performed?: Yes Alcohol Intake: never Drug use: Never Substance use type: does not use Do you feel safe at home: Yes Do you feel safe in your relationship?: Yes
[2024-12-24] MEDS: MORPHine IR 15 MG TAB, 4 TABS/BTL PO (00:16)
[2024-12-24] MEDS: diazePAM 10 MG/2 ML SYR 5 MG IM (00:17)
[2024-12-24] MEDS: methylPREDNISolone SUCC 125 MG VIAL IM (00:18)
[2024-12-24] MEDS: Acetaminophen 500 MG TAB 1000 MG PO (00:18)
[2024-12-24] MEDS: Ketorolac 30 MG/ML VIAL IM (00:18)
[2024-12-24] MEDS: Lidocaine 5% Patch 1 PATCH TP (00:28)
== END 2024-12-24 00:32 | disposition home or self-care (01) ==
PROVIDERS: Emergency Provider Student in an Organized Health Care Education/Training Program; PCP Physician Assistant Medical
DX: M54.41 Lumbago with sciatica, right side (principal)
CPT/HCPCS: 96372; 99284; J1885; J2919; J3360

== ENCOUNTER 2025-02-22 11:24 | Emergency (ER) | payer BC, SELFPAY ==
[2025-02-22 11:28] VITALS: BP 148/88; PULSE 91; RESP 20; TEMP 36.9; O2SAT 95
--- NOTE | 2025-02-22 11:40 | W.ED.GENAD ---
Discharge Plan Disposition Patient Disposition: Home Condition: Good Discharge Details Clinical Impression: Muscle strain of left thigh Primary Care Provider: Breanna Reyes ED Provider: Steven Jim Home Meds and New Rx's Prescriptions: No Action levothyroxine 175 MCG tablet 250 mcg PO DAILY losartan 25 MG tablet 25 mg PO QAM ibuprofen 800 MG tablet 800 mg PO TID PRN PRNQty: 30 0RF amlodipine 10 mg Tablet 10 mg PO DAILY Ozempic 0.25 mg or 0.5 mg (2 mg/3 mL) pen injector 0.6 mg SUBCUT .weekly Patient Comments: INJECT 0.25MG SUBCUTANEOUSLY ONCE EVERY WEEK FOR 4 WEEKS, THEN INCREASE TO 0.5MG WEEKLY dorzolamide-timolol 22.3-6.8 mg/mL drops 1 drp ophthalmic (eye) BID Patient Comments: INSTILL 1 DROP INTO EACH EYE TWICE DAILY colesevelam 625 mg tablet 1,250 mg PO BID Patient Comments: TAKE 2 TABLETS BY MOUTH ONCE DAILY losartan 100 mg tablet 100 mg PO DAILY Patient Comments: TAKE 1 TABLET BY MOUTH ONCE DAILY spironolactone 25 mg tablet 25 mg PO DAILY Patient Comments: TAKE 1 TABLET BY MOUTH ONCE DAILY Repatha SureClick 140 mg/mL pen injector 140 mg SUBCUT .[id number] carvedilol 6.25 mg tablet 6.25 mg PO DAILY cyclobenzaprine 10 mg tablet 10 mg PO TID Qty: 14 0RF lidocaine [Lidoderm] 5 % adhesive patch,medicated 1 patch Topical Q24H Qty: 15 0RF hydrochlorothiazide 25 mg tablet 25 mg PO DAILY Patient Comments: TAKE 1 TABLET BY MOUTH ONCE DAILY Discharge Instructions Instructions: Muscle Strain ED Additional Instructions: At this time we were not able to visualize any clots on the ultrasound. The likelihood for these are low, however out of an abundance of caution we will place an order for an outpatient ultrasound. Please contact the phone number provided to schedule a time that would work well for you. Please continue to take Tylenol and Motrin for the pain. You can take 1000 mg of Tylenol and 800 mg of ibuprofen every 6 hours. These are the maximum doses. Additionally please use the cyclobenzaprine muscle relaxant only as needed for breakthrough pain. Please ice area frequency, use the crutches to help reduce the movement of the sartorius muscle which I suspect is a strain cause. If you do not have improvement of your symptoms in the next 1 to 2 weeks, you may require further evaluation with your family doctor or an computer security specialist. If you notice any worsening of your symptoms, or any new symptoms such as vomiting, diarrhea, fever, chills, shortness of breath, chest pain, numbness, weakness, or fainting , please return immediately to the emergency department for reevaluation. Please follow up with your primary care provider as soon as possible for reassessment and reevaluation. As always, it was a pleasure participating in your medical care today. Stand Alone Forms: Physical Therapy Referral Referrals: Breanna Reyes PA [Primary Care Provider] - Discharge Orders Other Ambulatory Orders: US lower extremity venous LT (Routine) Timeframe: 10 Day Facility: [facility] - Location: DIAGNOSTIC IMAGING Ordered By: Steven Jim [facility] General Date/Time Provider Initiated Documentation: 02/22/25 11:37. HPI Narrative: 49-year-old female with a past medical history of notably large varicose veins, but no history of blood clots, who presents today for evaluation of left thigh pain. Patient states that for the last 5 to 6 days she has had a mild ache in her anterior left thigh which is worsened with use and movement. This also worsened over time. She does daily stretching exercises at work, but she does not believe that this was the focal cause. Patient states that the pain is notably worse whenever she flexes her thigh anteriorly. It is worse when she tries to ambulate. Pain is only located anteriorly for the proximal component and then it radiates more medially. No pain in the actual knee or the hip, but more so in the anterior thigh musculature. She denies fever or chills. She denies shortness of breath. No recent long trips surgeries or procedures. No estrogen use. No other complaints at this time. No numbness or tingling in the leg. Related Data Home Medications ?Medication ?Instructions ?Recorded ?Confirmed levothyroxine 175 mcg tablet 250 mcg PO DAILY 08/07/13 02/22/25 ibuprofen 800 mg tablet 800 mg PO TID PRN PRN ##30 02/22/15 02/22/25 losartan 25 mg tablet 25 mg PO QAM 02/22/15 02/22/25 amlodipine 10 mg tablet 10 mg PO DAILY 08/15/19 02/22/25 hydrochlorothiazide 25 mg tablet 25 mg PO DAILY 01/01/22 02/22/25 carvedilol 6.25 mg tablet 6.25 mg PO DAILY 09/01/24 02/22/25 colesevelam 625 mg tablet 1,250 mg PO BID 09/01/24 02/22/25 dorzolamide 22.3 mg-timolol 6.8 1 drp ophthalmic (eye) BID 09/01/24 02/22/25 mg/mL eye drops evolocumab 140 mg/mL subcutaneous 140 mg subcut .[id number] 09/01/24 02/22/25 pen injector (Repatha SureClick) losartan 100 mg tablet 100 mg PO DAILY 09/01/24 02/22/25 semaglutide 0.25 mg or 0.5 mg (2 0.6 mg subcut .weekly 09/01/24 02/22/25 mg/3 mL) subcutaneous pen injector (Ozempic) spironolactone 25 mg tablet 25 mg PO DAILY 09/01/24 02/22/25 cyclobenzaprine 10 mg tablet 10 mg PO TID #14 tabs 12/24/24 02/22/25 lidocaine 5 % topical patch 1 patch topical Q24H #15 ea 12/24/24 02/22/25 (Lidoderm) Previous Rx's ?Medication ?Instructions ?Recorded ibuprofen 800 mg tablet 800 mg PO TID PRN PRN ##30 02/22/15 cyclobenzaprine 10 mg tablet 10 mg PO TID #14 tabs 12/24/24 lidocaine 5 % topical patch 1 patch topical Q24H #15 ea 12/24/24 (Lidoderm) Allergies Allergy/AdvReac Type Severity Reaction Status Date / Time methimazole AdvReac Unknown Unknown Unverified 02/22/25 11:34 propylthiouracil AdvReac Unknown Unknown Unverified 02/22/25 11:34 General Stated Complaint: Orthopedic RONALD: 4 Exam Narrative Exam Narrative: 1.Const: Well-nourished, Well-developed, appearing stated age 2.Eyes: PERRL, no conjunctival injection, and symmetrical lids. 3.ENT: Atraumatic external nose and ears. Moist MM. Neck: Symmetric, trachea midline, No thyromegaly. 4.CVS: +S1/S2, Peripheral pulses 2+ and equal in all extremities. Brisk capillary refill in all extremities. 5.RESP: Unlabored respiratory effort. Clear to auscultation bilaterally. No wheezes rales or rhonchi 6.GI: Soft, Nontender/Nondistended, No hepatosplenomegaly. No guarding or rebound. 7.MSK: Normocephalic/Atraumatic, Extremities w/o deformity . No cyanosis or clubbing, Normal movement of all extremities. No asymmetric or unilateral swelling in the calf or thigh. Mild subjective tenderness noted in the left anterior thigh with slight medial rotation towards the knee as it descends more distally. The area of tenderness appears to be notably present along the pathway for the sartorius muscle. No large lump to suggest torn muscle component. Pain is notably made worse with flexion at the hip, and internal rotation of the left leg. No pain or tenderness at the knee itself. 8.Skin: Warm, Dry. No rashes or lesions. No redness or warmth. 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 Sensation grossly intact, no focal neurologic deficits. 10.Psych: (AAO) x3. Appropriate mood and affect Course Vital Signs Vital signs: Vital Signs Temperature 36.9 C 02/22/25 11:28 Pulse 91 H 02/22/25 11:28 Respiratory Rate 20 02/22/25 11:28 Blood Pressure 148/88 H 02/22/25 11:28 Pulse Oximetry 95 02/22/25 11:28 Temperature 36.9 C 02/22/25 11:28 Temperature Source Oral 02/22/25 11:28 Pulse 91 H 02/22/25 11:28 Respiratory Rate 20 02/22/25 11:28 Blood Pressure 148/88 H 02/22/25 11:28 Blood Pressure Position Sitting 02/22/25 11:28 Pulse Oximetry 95 02/22/25 11:28 Oxygen Delivery Method Room Air 02/22/25 11:28 Oxygen Flow Rate 0 02/22/25 11:28 Medical Decision Making 49-year-old female with a past medical history of notably large varicose veins, but no history of blood clots, who presents today for evaluation of left thigh pain. Patient states that for the last 5 to 6 days she has had a mild ache in her anterior left thigh which is worsened with use and movement. This also worsened over time. She does daily stretching exercises at work, but she does not believe that this was the focal cause. Patient states that the pain is notably worse whenever she flexes her thigh anteriorly. It is worse when she tries to ambulate. Pain is only located anteriorly for the proximal component and then it radiates more medially. No pain in the actual knee or the hip, but more so in the anterior thigh musculature. She denies fever or chills. She denies shortness of breath. No recent long trips surgeries or procedures. No estrogen use. No other complaints at this time. No numbness or tingling in the leg. Physical exam demonstrates No cyanosis or clubbing, Normal movement of all extremities. No asymmetric or unilateral swelling in the calf or thigh. Mild subjective tenderness noted in the left anterior thigh with slight medial rotation towards the knee as it descends more distally. The area of tenderness appears to be notably present along the pathway for the sartorius muscle. No large lump to suggest torn muscle component. Pain is notably made worse with flexion at the hip, and internal rotation of the left leg. No pain or tenderness at the knee itself. Symptoms appear concerning for muscle strain, particularly sartorius muscle. However with the patient's history of varicosities, and her age and risk factors DVT is also on the differential. Bedside ultrasound was performed demonstrates no femoral vein clot, or superficial clot in her varicosities. No evidence of muscle rupture. She has not been on any antibiotics recently. No fever or chills to suggest cellulitis or infection. Distal pulses are normal in both lower extremities, no evidence of phlegmasia cerulea dolens or phlegmasia Cirelli Albans. No indication for emergent ultrasound or anticoagulation at this time. Will give crutches, recommend NSAID therapy, will give some muscle relaxant as it to go bottle for home use. Will place order for outpatient ultrasound if symptoms persist. Otherwise patient stable for discharge. Discussed red flags for which to return. I have extensively reviewed the treatment plan and discharge instructions with the patient. I have addressed all patient concerns at this time. The patient was made aware of what symptoms to monitor for that would warrant a return to the emergency department. Discussed the plan with the patient, they demonstrate verbal understanding and agreement with our assessment and plan at this time. The documentation in this chart was dictated using Dragon dictation software. Please excuse any dictation errors. Quality:SDOH Health Related Social Needs: No Data to Display PFSH All Active Problems (Updated 02/22/25 @ 12:06 by Steven Jim DO) Muscle strain of left thigh (Acute) Pneumonia (Acute) Social History Smoking/Tobacco Use Status: Current every day Tobacco Type: cigarettes Smoking risk assessment performed?: Yes Alcohol Intake: never Drug use: Never Substance use type: does not use Do you feel safe at home: Yes Do you feel safe in your relationship?: Yes POCUS Exam (ED) Limited Vascular Exam DATE OF EXAM: 02/22/25 TIME OF EXAM: 12:18 PROVIDER THAT PERFORMED THE STUDY: Steven Jim IS THIS A REPEAT EXAM DURING THIS ENCOUNTER: No Vascular Exam: Left lower extremity REASON FOR EXAM: Concern for DVT left lower extremity VISUALIZED STRUCTURES: Left common femoral vein, Left popliteal vein, Left superficial femoral vein and Left greater saphenous vein PERTINENT FINDINGS/IMPRESSION: Compressible veins left leg and No apparent abnormalities Exam Complete
[2025-02-22] MEDS: Acetaminophen 500 MG TAB 1000 MG PO (12:09)
[2025-02-22] MEDS: Cyclobenzaprine 10 MG TAB PO (12:10)
[2025-02-22] MEDS: Ketorolac 30 MG/ML VIAL IM (12:10)
[2025-02-22] MEDS: Cyclobenzaprine 10 MG TAB, 3 TABS/BTL PO (12:10)
[2025-02-22 12:13] VITALS: BP 145/88; PULSE 98; RESP 16; O2SAT 96
== END 2025-02-22 12:22 | disposition home or self-care (01) ==
LOC: ER 12:21
PROVIDERS: Emergency Provider Student in an Organized Health Care Education/Training Program; PCP Physician Assistant Medical
DX: S76.912A Strain of unspecified muscles, fascia and tendons at thigh level, left thigh, initial encounter (principal); X58.XXXA Exposure to other specified factors, initial encounter
CPT/HCPCS: 93971; 96372; 99284; 99283; J1885

== ENCOUNTER 2025-02-24 13:07 | Emergency (ER) | payer BC, SELFPAY ==
[2025-02-24 13:24] VITALS: BP 134/84; PULSE 94; RESP 20; TEMP 36.7; O2SAT 95
--- NOTE | 2025-02-25 11:36 | ED.GENADUL_ITS ---
Discharge Plan Disposition Patient Disposition: Home Condition: Stable Discharge Details Clinical Impression: Muscle strain of left thigh Primary Care Provider: Breanna Reyes ED Provider: Marisol Shetty Home Meds and New Rx's Prescriptions: Continued levothyroxine 175 MCG tablet 250 mcg PO DAILY losartan 25 MG tablet 25 mg PO QAM ibuprofen 800 MG tablet 800 mg PO TID PRN PRNQty: 30 0RF amlodipine 10 mg Tablet 10 mg PO DAILY Ozempic 0.25 mg or 0.5 mg (2 mg/3 mL) pen injector 0.6 mg SUBCUT .weekly Patient Comments: INJECT 0.25MG SUBCUTANEOUSLY ONCE EVERY WEEK FOR 4 WEEKS, THEN INCREASE TO 0.5MG WEEKLY dorzolamide-timolol 22.3-6.8 mg/mL drops 1 drp ophthalmic (eye) BID Patient Comments: INSTILL 1 DROP INTO EACH EYE TWICE DAILY colesevelam 625 mg tablet 1,250 mg PO BID Patient Comments: TAKE 2 TABLETS BY MOUTH ONCE DAILY losartan 100 mg tablet 100 mg PO DAILY Patient Comments: TAKE 1 TABLET BY MOUTH ONCE DAILY spironolactone 25 mg tablet 25 mg PO DAILY Patient Comments: TAKE 1 TABLET BY MOUTH ONCE DAILY Repatha SureClick 140 mg/mL pen injector 140 mg SUBCUT .[id number] carvedilol 6.25 mg tablet 6.25 mg PO DAILY cyclobenzaprine 10 mg tablet 10 mg PO TID Qty: 14 0RF lidocaine [Lidoderm] 5 % adhesive patch,medicated 1 patch Topical Q24H Qty: 15 0RF hydrochlorothiazide 25 mg tablet 25 mg PO DAILY Patient Comments: TAKE 1 TABLET BY MOUTH ONCE DAILY Discharge Instructions Instructions: Lower Extremity Muscle Strain (DC) Additional Instructions: Take ibuprofen and Tylenol as needed for pain your ultrasound was negative, should you have pain greater than 1 week I recommend repeat assessment with your primary care physician and repeat ultrasound at their discretion Should you have new or worsening complaints please be reassessed Referrals: Breanna Reyes PA [Primary Care Provider] - 1 week Discharge Data Discharge Date/Time-TO BE ENTERED AT DEPARTURE: 02/24/25 13:42 HPI General Date/Time Provider Initiated Documentation: 02/24/25 13:28 . HPI Narrative: 49-year-old female presents for review of left lower extremity ultrasound results. Evaluated in ED yesterday, likely strain. Outpatient ultrasound recommended. Pain significantly improved today, no new symptoms. Related Data Home Medications ?Medication ?Instructions ?Recorded ?Confirmed levothyroxine 175 mcg tablet 250 mcg PO DAILY 08/07/13 02/24/25 ibuprofen 800 mg tablet 800 mg PO TID PRN PRN ##30 02/22/15 02/24/25 losartan 25 mg tablet 25 mg PO QAM 02/22/15 02/24/25 amlodipine 10 mg tablet 10 mg PO DAILY 08/15/19 02/24/25 hydrochlorothiazide 25 mg tablet 25 mg PO DAILY 01/01/22 02/24/25 carvedilol 6.25 mg tablet 6.25 mg PO DAILY 09/01/24 02/24/25 colesevelam 625 mg tablet 1,250 mg PO BID 09/01/24 02/24/25 dorzolamide 22.3 mg-timolol 6.8 1 drp ophthalmic (eye) BID 09/01/24 02/24/25 mg/mL eye drops evolocumab 140 mg/mL subcutaneous 140 mg subcut .[id number] 09/01/24 02/24/25 pen injector (Repatha SureClick) losartan 100 mg tablet 100 mg PO DAILY 09/01/24 02/24/25 semaglutide 0.25 mg or 0.5 mg (2 0.6 mg subcut .weekly 09/01/24 02/24/25 mg/3 mL) subcutaneous pen injector (Ozempic) spironolactone 25 mg tablet 25 mg PO DAILY 09/01/24 02/24/25 cyclobenzaprine 10 mg tablet 10 mg PO TID #14 tabs 12/24/24 02/24/25 lidocaine 5 % topical patch 1 patch topical Q24H #15 ea 12/24/24 02/24/25 (Lidoderm) Previous Rx's ?Medication ?Instructions ?Recorded ibuprofen 800 mg tablet 800 mg PO TID PRN PRN ##30 02/22/15 cyclobenzaprine 10 mg tablet 10 mg PO TID #14 tabs 12/24/24 lidocaine 5 % topical patch 1 patch topical Q24H #15 ea 12/24/24 (Lidoderm) Allergies Allergy/AdvReac Type Severity Reaction Status Date / Time methimazole AdvReac Unknown Unknown Unverified 02/24/25 13:26 propylthiouracil AdvReac Unknown Unknown Unverified 02/24/25 13:26 General Stated Complaint: Recheck RONALD: 4 Exam Narrative Exam Narrative: General Appearance: Alert and oriented. Vital signs: Within normal limits. HEENT: Within normal limits. Respiratory: Within normal limits. Cardiovascular: Gastrointestinal: Genitourinary: Lymphatic: Back, Musculoskeletal: Ambulatory with steady gait. Extremities: No obvious swelling in left lower extremity. Mild tenderness in left upper thigh. Skin: Warm and dry, no rash. Neurological: Normal. Psychiatric: Other observations: Course Vital Signs Vital signs: Vital Signs Temperature 36.7 C 02/24/25 13:24 Pulse 94 H 02/24/25 13:24 Respiratory Rate 20 02/24/25 13:24 Blood Pressure 134/84 02/24/25 13:24 Pulse Oximetry 95 02/24/25 13:24 Temperature 36.7 C 02/24/25 13:24 Pulse 94 H 02/24/25 13:24 Respiratory Rate 20 02/24/25 13:24 Blood Pressure 134/84 02/24/25 13:24 Blood Pressure Position Sitting 02/24/25 13:24 Pulse Oximetry 95 02/24/25 13:24 Oxygen Delivery Method Room Air 02/24/25 13:24 Oxygen Flow Rate 0 02/24/25 13:24 Pain Level 1 02/24/25 13:37 Medical Decision Making Initial Assessment: 49-year-old female presents for review of ultrasound results of her left lower extremity. Pain significantly improved today, denies any new symptoms. Alert and oriented, ambulatory with steady gait, no obvious swelling in left lower extremity, mild tenderness in left upper thigh. ED Course: - Evaluated in ED, likely strain. - Outpatient ultrasound recommended. - Ultrasound results: no DVT. Final Assessment: Pain significantly improved, no new symptoms. Ultrasound results show no DVT. Patient encouraged to follow up with primary care physician for repeat ultrasound in 1 week if symptoms persist, return earlier if worsening. Clinical Impression: - Left lower extremity strain Disposition: - Follow-Up: Follow up with PCP for repeat ultrasound in 1 week if symptoms persist, return earlier if worsening. Quality:SDOH Health Related Social Needs: No Data to Display PFSH All Active Problems (Updated 02/24/25 @ 13:31 by SANDEEP Baxter) Muscle strain of left thigh (Acute) Pneumonia (Acute) Social History Smoking/Tobacco Use Status: Current every day Tobacco Type: cigarettes Smoking risk assessment performed?: Yes Alcohol Intake: never Drug use: Never Substance use type: does not use Do you feel safe at home: Yes Do you feel safe in your relationship?: Yes
== END 2025-02-24 13:42 | disposition home or self-care (01) ==
PROVIDERS: Emergency Provider Physician Assistant; PCP Physician Assistant Medical
DX: S76.912A Strain of unspecified muscles, fascia and tendons at thigh level, left thigh, initial encounter (principal); F17.210 Nicotine dependence, cigarettes, uncomplicated; Z79.899 Other long term (current) drug therapy; X58.XXXA Exposure to other specified factors, initial encounter
CPT/HCPCS: 99282

== ENCOUNTER 2025-03-08 18:32 | Emergency (ER) | payer BC, SELFPAY ==
[2025-03-08 18:46] VITALS: BP 201/92; PULSE 105; RESP 16; TEMP 36.8; O2SAT 97
--- NOTE | 2025-03-08 19:30 | DI.RAD_ITS ---
Exam(s) XR FINGER RT MIDDLE EXAM: XR FINGER RT MIDDLE CLINICAL HISTORY: crush at DIP w/ pain. TECHNIQUE: 2D digital imaging was performed of the right finger. Three views were obtained. PA/AP, oblique, and lateral views were obtained. COMPARISON: No exams were available for comparison FINDINGS: BONES: No acute fracture is present. No bony destructive lesion is seen. JOINTS: No dislocation present. There are degenerative changes seen in the fingers. SOFT TISSUE: Normal. IMPRESSION: No evidence of acute fracture or dislocation. DATA REPOSITORY: RADIATION DOSE DELIVERED:
--- NOTE | 2025-03-08 20:25 | W.ED.GENAD ---
Discharge Plan Disposition Patient Disposition: Home Condition: Good Discharge Details Clinical Impression: Contusion of right middle finger Primary Care Provider: Breanna Reyes ED Provider: Steven Jim Home Meds and New Rx's Prescriptions: No Action levothyroxine 175 MCG tablet 250 mcg PO DAILY losartan 25 MG tablet 25 mg PO QAM ibuprofen 800 MG tablet 800 mg PO TID PRN PRNQty: 30 0RF amlodipine 10 mg Tablet 10 mg PO DAILY Ozempic 0.25 mg or 0.5 mg (2 mg/3 mL) pen injector 0.6 mg SUBCUT .weekly Patient Comments: INJECT 0.25MG SUBCUTANEOUSLY ONCE EVERY WEEK FOR 4 WEEKS, THEN INCREASE TO 0.5MG WEEKLY dorzolamide-timolol 22.3-6.8 mg/mL drops 1 drp ophthalmic (eye) BID Patient Comments: INSTILL 1 DROP INTO EACH EYE TWICE DAILY colesevelam 625 mg tablet 1,250 mg PO BID Patient Comments: TAKE 2 TABLETS BY MOUTH ONCE DAILY losartan 100 mg tablet 100 mg PO DAILY Patient Comments: TAKE 1 TABLET BY MOUTH ONCE DAILY spironolactone 25 mg tablet 25 mg PO DAILY Patient Comments: TAKE 1 TABLET BY MOUTH ONCE DAILY Repatha SureClick 140 mg/mL pen injector 140 mg SUBCUT .[id number] carvedilol 6.25 mg tablet 6.25 mg PO DAILY cyclobenzaprine 10 mg tablet 10 mg PO TID Qty: 14 0RF lidocaine [Lidoderm] 5 % adhesive patch,medicated 1 patch Topical Q24H Qty: 15 0RF hydrochlorothiazide 25 mg tablet 25 mg PO DAILY Patient Comments: TAKE 1 TABLET BY MOUTH ONCE DAILY Discharge Instructions Instructions: Minor Contusion ED Additional Instructions: At this time your x-ray shows no evidence of fracture. I suspect the bone is notably contused. Please take Tylenol and Motrin as needed for pain. You can apply Voltaren gel to the area. If you notice any worsening of your symptoms, or any new symptoms such as vomiting, diarrhea, fever, chills, shortness of breath, chest pain, numbness, weakness, or fainting , please return immediately to the emergency department for reevaluation. Please follow up with your primary care provider as soon as possible for reassessment and reevaluation. As always, it was a pleasure participating in your medical care today. Referrals: Breanna Reyes PA [Primary Care Provider] - Discharge Data Discharge Date/Time-TO BE ENTERED AT DEPARTURE: 03/08/25 20:36 HPI General Date/Time Provider Initiated Documentation: 03/08/25 19:00. HPI Narrative: 49-year-old female who is right-hand dominant presents today for tenderness on her finger. Patient states that 3 days ago on her right dominant hand she crushed the distal tip of her middle finger, this is since cause pain and tenderness. She has had mild swelling at the DIP joint. She denies any complete numbness but does admit to occasional tingling. She denies pain in any other joints or fingers. No other complaints at this time. Pain is notably improved with Tylenol and Motrin. It is worsened with palpation. Related Data Home Medications ?Medication ?Instructions ?Recorded ?Confirmed levothyroxine 175 mcg tablet 250 mcg PO DAILY 08/07/13 03/08/25 ibuprofen 800 mg tablet 800 mg PO TID PRN PRN ##30 02/22/15 03/08/25 losartan 25 mg tablet 25 mg PO QAM 02/22/15 03/08/25 amlodipine 10 mg tablet 10 mg PO DAILY 08/15/19 03/08/25 hydrochlorothiazide 25 mg tablet 25 mg PO DAILY 01/01/22 03/08/25 carvedilol 6.25 mg tablet 6.25 mg PO DAILY 09/01/24 03/08/25 colesevelam 625 mg tablet 1,250 mg PO BID 09/01/24 03/08/25 dorzolamide 22.3 mg-timolol 6.8 1 drp ophthalmic (eye) BID 09/01/24 03/08/25 mg/mL eye drops evolocumab 140 mg/mL subcutaneous 140 mg subcut .[id number] 09/01/24 03/08/25 pen injector (Eloisa Colon) losartan 100 mg tablet 100 mg PO DAILY 09/01/24 03/08/25 semaglutide 0.25 mg or 0.5 mg (2 0.6 mg subcut .weekly 09/01/24 03/08/25 mg/3 mL) subcutaneous pen injector (Ozguillaume) spironolactone 25 mg tablet 25 mg PO DAILY 10/20/24 04/26/25 cyclobenzaprine 10 mg tablet 10 mg PO TID #14 tabs 12/24/24 03/08/25 lidocaine 5 % topical patch 1 patch topical Q24H #15 ea 12/24/24 03/08/25 (Lidoderm) Previous Rx's ?Medication ?Instructions ?Recorded ibuprofen 800 mg tablet 800 mg PO TID PRN PRN ##30 02/22/15 cyclobenzaprine 10 mg tablet 10 mg PO TID #14 tabs 12/24/24 lidocaine 5 % topical patch 1 patch topical Q24H #15 ea 12/24/24 (Lidoderm) Allergies Allergy/AdvReac Type Severity Reaction Status Date / Time methimazole AdvReac Unknown Unknown Unverified 03/08/25 18:49 propylthiouracil AdvReac Unknown Unknown Unverified 03/08/25 18:49 General Stated Complaint: Orthopedic RONALD: 3 Exam Narrative Exam Narrative: 1.Const: Well-nourished, Well-developed, appearing stated age 2.Eyes: PERRL, no conjunctival injection, and symmetrical lids. 3.ENT: Atraumatic external nose and ears. Moist MM. Neck: Symmetric, trachea midline, No thyromegaly. 4.CVS: +S1/S2, Peripheral pulses 2+ and equal in all extremities. Brisk capillary refill in all extremities. 5.RESP: Unlabored respiratory effort. Clear to auscultation bilaterally. No wheezes rales or rhonchi 6.GI: Soft, Nontender/Nondistended, No hepatosplenomegaly. No guarding or rebound. 7.MSK: Normocephalic, Extremities w/o deformity or ttp No cyanosis or clubbing, Normal movement of all extremities. Tenderness over the DIP joint of the middle finger on the right hand, minimal swelling. No subungual hematoma. Excellent movement for flexion and extension with no diminishment of strength. 8.Skin: Warm, Dry. No rashes or lesions. 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 Sensation grossly intact, no focal neurologic deficits. 10.Psych: (AAO) x3. Appropriate mood and affect Course Vital Signs Vital signs: Vital Signs Temperature 36.8 C 03/08/25 18:46 Pulse 105 H 03/08/25 18:46 Respiratory Rate 16 03/08/25 18:46 Blood Pressure 201/92 H 03/08/25 18:46 Pulse Oximetry 97 03/08/25 18:46 Temperature 36.8 C 03/08/25 18:46 Pulse 105 H 03/08/25 18:46 Respiratory Rate 16 03/08/25 18:46 Blood Pressure 201/92 H 03/08/25 18:46 Pulse Oximetry 97 03/08/25 18:46 Pain Level 10 03/08/25 18:46 Medical Decision Making 49-year-old female who is right-hand dominant presents today for tenderness on her finger. Patient states that 3 days ago on her right dominant hand she crushed the distal tip of her middle finger, this is since cause pain and tenderness. She has had mild swelling at the DIP joint. She denies any complete numbness but does admit to occasional tingling. She denies pain in any other joints or fingers. No other complaints at this time. Pain is notably improved with Tylenol and Motrin. It is worsened with palpation. Tenderness over the DIP joint of the middle finger on the right hand, minimal swelling. No subungual hematoma. Excellent movement for flexion and extension with no diminishment of strength. X-ray was ordered and shows no evidence of acute fracture or dislocation. Suspect contusion. No indication to suggest cellulitis. Will give splint for protection, recommend continued NSAID therapy. Discussed red flags for which to return. I have extensively reviewed the treatment plan and discharge instructions with the patient. I have addressed all patient concerns at this time. The patient was made aware of what symptoms to monitor for that would warrant a return to the emergency department. Discussed the plan with the patient, they demonstrate verbal understanding and agreement with our assessment and plan at this time. The documentation in this chart was dictated using [employer] dictation software. Please excuse any dictation errors. FINDINGS: BONES: No acute fracture is present. No bony destructive lesion is seen. JOINTS: No dislocation present. There are degenerative changes seen in the fingers. SOFT TISSUE: Normal. IMPRESSION: No evidence of acute fracture or dislocation. Quality:SDOH Health Related Social Needs: No Data to Display PFSH All Active Problems (Updated 03/08/25 @ 20:27 by Steven Jim DO) Contusion of right middle finger (Acute) Muscle strain of left thigh (Acute) Pneumonia (Acute) Social History Smoking/Tobacco Use Status: Current every day Tobacco Type: cigarettes Smoking risk assessment performed?: Yes Alcohol Intake: never Drug use: Never Substance use type: does not use Do you feel safe at home: Yes Do you feel safe in your relationship?: Yes
[2025-03-08 20:34] VITALS: BP 168/82; PULSE 99; RESP 18; O2SAT 100
== END 2025-03-08 20:36 | disposition home or self-care (01) ==
PROVIDERS: Emergency Provider Student in an Organized Health Care Education/Training Program; PCP Physician Assistant Medical
DX: S60.031A Contusion of right middle finger without damage to nail, initial encounter (principal); I10 Essential (primary) hypertension; F17.210 Nicotine dependence, cigarettes, uncomplicated; W23.0XXA Caught, crushed, jammed, or pinched between moving objects, initial encounter; Y93.E6 Activity, residential relocation; Y92.018 Other place in single-family (private) house as the place of occurrence of the external cause
CPT/HCPCS: 99283; 73140

== ENCOUNTER 2025-03-14 01:39 | Emergency (ER) | payer BC, SELFPAY ==
[2025-03-14] VITALS (17 sets, daily range): BP systolic 128–196; BP diastolic 55–80; PULSE 79–104; RESP 12–18; TEMP 36.8; O2SAT 92–96
--- NOTE | 2025-03-14 02:00 | DI.RAD_ITS ---
Exam(s) XR KNEE LT 3V AP,LAT,ALISTAIR EXAM: XR KNEE LT 3V AP,LAT,ALISTAIR CLINICAL HISTORY: pain, unable to flex. TECHNIQUE: 2D digital imaging was performed. Three views. COMPARISON: No exams were available for comparison FINDINGS: BONES: No acute fracture is present. No bony destructive lesion is seen. Enthesophyte at quadricep s insertion on patella. JOINTS: Mild narrowing of the medial femoral tibial joint space and widening of the lateral femoral t ibial joint space.. No joint effusion is seen. SOFT TISSUE: Normal. IMPRESSION: Mild degenerative changes. DATA REPOSITORY: RADIATION DOSE DELIVERED:
--- NOTE | 2025-03-14 02:02 | W.ED.GENAD ---
Discharge Plan Discharge Details Chief Complaint: Orthopedic Clinical Impression: Left knee pain Primary Care Provider: Breanna Reyes ED Provider: Tee Mares [place] Meds and New Rx's Prescriptions: No Action levothyroxine 175 MCG tablet 250 mcg PO DAILY ibuprofen 800 MG tablet 800 mg PO TID PRN PRNQty: 30 0RF amlodipine 10 mg Tablet 10 mg PO DAILY Ozempic 0.25 mg or 0.5 mg (2 mg/3 mL) pen injector 0.6 mg SUBCUT .weekly Patient Comments: INJECT 0.25MG SUBCUTANEOUSLY ONCE EVERY WEEK FOR 4 WEEKS, THEN INCREASE TO 0.5MG WEEKLY dorzolamide-timolol 22.3-6.8 mg/mL drops 1 drp ophthalmic (eye) BID Patient Comments: INSTILL 1 DROP INTO EACH EYE TWICE DAILY colesevelam 625 mg tablet 625 mg PO DAILY Patient Comments: TAKE 2 TABLETS BY MOUTH ONCE DAILY losartan 100 mg tablet 100 mg PO DAILY Patient Comments: TAKE 1 TABLET BY MOUTH ONCE DAILY spironolactone 25 mg tablet 25 mg PO DAILY Patient Comments: TAKE 1 TABLET BY MOUTH ONCE DAILY Repatha SureClick 140 mg/mL pen injector 140 mg SUBCUT .[id number] carvedilol 6.25 mg tablet 6.25 mg PO DAILY cyclobenzaprine 10 mg tablet 10 mg PO TID Qty: 14 0RF lidocaine [Lidoderm] 5 % adhesive patch,medicated 1 patch Topical Q24H Qty: 15 0RF hydrochlorothiazide 25 mg tablet 25 mg PO DAILY Patient Comments: TAKE 1 TABLET BY MOUTH ONCE DAILY HPI General Mode of arrival: wheelchair. Date/Time Provider Initiated Documentation: 03/14/25 01:42. Limitations to Documentation: no limitations. Information obtained by: patient and RN notes reviewed. HPI Narrative: Patient presents to ED with left knee pain. Patient reports that when she got out of bed in the morning she felt pain in the distal medial thigh. She described it as a charley horse type feeling. Throughout the day it is continued to bother her. Overnight it has become much worse. She is most comfortable with the leg extended. She is unable to bend her knee at this point because of the pain. Pain is mostly behind the knee somewhat still in the medial thigh but for the most part feels that it is all knee pain. Denies any discrete injury. She otherwise feels well. There has been no fever or chills. Denies any numbness or tingling distally. She is able to move her ankle and foot without problem. She denies any chest pain or shortness of breath. Related Data Home Medications ?Medication ?Instructions ?Recorded ?Confirmed levothyroxine 175 mcg tablet 250 mcg PO DAILY 08/07/13 03/14/25 ibuprofen 800 mg tablet 800 mg PO TID PRN PRN ##30 02/22/15 03/14/25 amlodipine 10 mg tablet 10 mg PO DAILY 08/15/19 03/14/25 hydrochlorothiazide 25 mg tablet 25 mg PO DAILY 01/01/22 03/14/25 carvedilol 6.25 mg tablet 6.25 mg PO DAILY 09/01/24 03/14/25 colesevelam 625 mg tablet 625 mg PO DAILY 09/01/24 03/14/25 dorzolamide 22.3 mg-timolol 6.8 1 drp ophthalmic (eye) BID 09/01/24 03/08/25 mg/mL eye drops evolocumab 140 mg/mL subcutaneous 140 mg subcut .[id number] 09/01/24 03/14/25 pen injector (Repatha SureClick) losartan 100 mg tablet 100 mg PO DAILY 09/01/24 03/14/25 semaglutide 0.25 mg or 0.5 mg (2 0.6 mg subcut .weekly 09/01/24 03/14/25 mg/3 mL) subcutaneous pen injector (Ozempic) spironolactone 25 mg tablet 25 mg PO DAILY 09/01/24 03/14/25 cyclobenzaprine 10 mg tablet 10 mg PO TID #14 tabs 12/24/24 03/14/25 lidocaine 5 % topical patch 1 patch topical Q24H #15 ea 12/24/24 03/14/25 (Lidoderm) Previous Rx's ?Medication ?Instructions ?Recorded ibuprofen 800 mg tablet 800 mg PO TID PRN PRN ##30 02/22/15 cyclobenzaprine 10 mg tablet 10 mg PO TID #14 tabs 12/24/24 lidocaine 5 % topical patch 1 patch topical Q24H #15 ea 12/24/24 (Lidoderm) Allergies Allergy/AdvReac Type Severity Reaction Status Date / Time methimazole AdvReac Unknown Unknown Unverified 03/14/25 02:24 propylthiouracil AdvReac Unknown Unknown Unverified 03/14/25 02:24 General Stated Complaint: Orthopedic RONALD: 3 Exam Narrative Exam Narrative: Const: WDWN female in NAD. VS per triage. HEENT: NC/AT. Normal facial exam. Neck: Supple. Trachea midline. Lungs: Normal respiratory effort. Neuro: A+O x 3. Normal speech, mentation. Cranial nerves II - XII grossly intact. No gross motor or sensory deficit. Ext: No C/C/E. Patient unable to flex left knee due to pain. Tenderness with questionable fullness in the popliteal fossa. No obvious effusion. No erythema or warmth. DP and PT pulses intact. Strength and sensation intact distally. Some varicose veins noted. Course Vital Signs Vital signs: Vital Signs Temperature 98.2 F 03/14/25 01:43 Pulse 104 H 03/14/25 01:43 Respiratory Rate 18 03/14/25 01:43 Blood Pressure 196/80 H 03/14/25 01:43 Pulse Oximetry 96 03/14/25 01:43 Temperature 98.2 F 03/14/25 01:43 Temperature Source Tympanic 03/14/25 01:43 Pulse 104 H 03/14/25 01:43 Respiratory Rate 18 03/14/25 01:43 Blood Pressure 196/80 H 03/14/25 01:43 Pulse Oximetry 96 03/14/25 01:43 Oxygen Delivery Method Room Air 03/14/25 01:43 Oxygen Flow Rate 0 03/14/25 01:43 Pain Level 10 03/14/25 01:43 Medical Decision Making Patient presenting to ED with worsening left knee pain over the course of 24 hours with no definitive injury. She has no other complaints. She is afebrile and there is no erythema or warmth to the knee. There is no obvious effusion. She is able to lift her heel off the bed. She is unable to flex the knee at all without pain. There is tenderness and fullness in the popliteal fossa. There is no calf tenderness. Pulses are intact distally and are strong. Some mild tenderness medial thigh. Doubt that this is an infectious process given the lack of fever, warmth, erythema and there is no obvious effusion that could be tapped. Will plan to check CBC, sed rate, C-reactive protein. Possibility that this is DVT given the medial thigh pain but there is no edema distally and no calf tenderness. Will check a D-dimer. Doubt any bony injury given lack of trauma but will obtain x-ray. Possibility of a ruptured Lane's cyst given most of the pain seems to be posterior. Will give IV ketorolac for comfort. Patient's white blood cell count, sed rate, C-reactive protein are all minimally elevated. This does not appear to be any type of infective process. Her D-dimer is elevated to 699 and DVT cannot be ruled out. X-rays per my read with no acute abnormality noted. Patient does have improvement of pain with the ketorolac but is still unable to flex. After discussion I have decided to hold the patient here till morning to obtain ultrasound to rule out DVT as well as to evaluate for Lane's cyst. Lab Data Lab results reviewed: Yes I reviewed the patient's lab results. Lab results narrative: See [facility] All Active Problems (Updated 03/14/25 @ 04:49 by Tee Mares MD) Left knee pain (Acute) Medical History Hypothyroid HTN (hypertension) Surgical History S/P hysterectomy S/P cholecystectomy Social History Smoking/Tobacco Use Status: Current every day Tobacco Type: cigarettes Smoking risk assessment performed?: Yes Alcohol Intake: never Drug use: Never Substance use type: does not use Do you feel safe at home: Yes Do you feel safe in your relationship?: Yes
[2025-03-14] MEDS: Ketorolac 15 MG/ML VIAL IVP (02:23)
[2025-03-14 02:30] LABS: Abs Immature Grans 0.05 10^3/uL (0.0-0.06); Absolute Basophil Count 0.07 10^3/uL (0.0-0.2); Absolute Lymphocyte Count 1.66 10^3/uL (1.2-3.4); Basophils % 0.6 %; Eosinophils % 1.7 %; HCT 45.1 % (36.0-46.0); HGB 14.9 g/dL (11.2-15.7); Immature Grans % 0.4 %; Lymphocytes % 14.5 %; MCH 29.9 pg (27.0-33.0); MCV 90 fL (80-95); MPV 9.1 fL (8.0-11.0); Monocytes % 9.6 %; Neutrophils % 73.2 %; Platelet Count 293 10^3/uL (130-400); RBC 4.99 10^6/uL (3.93-5.22); RDW 13.2 % (11.7-14.6); RDW-SD 44.2 fL; WBC 11.47 10^3/uL (4.4-10.8)
[2025-03-14 02:31] LABS: Absolute Eosinophil Count 0.19 10^3/uL (0.0-0.7); ESR 31 mm/hr (0-30)
[2025-03-14 02:42] LABS: C-Reactive Protein 0.89 mg/dL (<or=0.5)
[2025-03-14 02:55] LABS: D-Dimer 699 ng/mlFEU (<500)
--- NOTE | 2025-03-14 03:51 | DI.VRAD_ITS ---
PROCEDURE INFORMATION: Exam: XR Left Knee Exam date and time: 03/14/2025 2:42 AM Age: 49 years old Clinical indication: Left; Knee pain, unable to flex TECHNIQUE: Imaging protocol: Radiologic exam of the left knee. Views: 3 views. COMPARISON: No relevant prior studies available. FINDINGS: Bones/joints: No acute fracture. Early osteoarthrosis of medial compartment. Mild widening of lateral compartment versus projection. No dislocation. Minimal enthesopathy. Small joint effusion. Soft tissues: Unremarkable. IMPRESSION: No fracture. If pain persists, suggest MRI. Dictated and Authenticated by: Rakan Neff MD. Orderin Vishnu Oliveria MD
--- NOTE | 2025-03-14 05:00 | DI.US_ITS ---
Exam(s) US LOWER EXTREMITY VENOUS LT EXAM: US LOWER EXTREMITY VENOUS LT CLINICAL HISTORY: left medial thigh/popliteal pain; positive dimer. TECHNIQUE: Lower extremity venous ultrasound performed using grayscale, color-flow, and spectral Do ppler analysis. COMPARISON: No exams were available for comparison FINDINGS: The common femoral, femoral and popliteal veins demonstrate normal compressibility, augmentation, and color Doppler. The posterior tibial and peroneal veins are patent. No saphenous vein thrombosis or other superficial venous thrombosis is seen. No hematoma or Lane's cyst is seen. IMPRESSION: Negative lower extremity ultrasound. No evidence of DVT. DATA REPOSITORY:
--- NOTE | 2025-03-14 07:11 | ED.PROG_ITS ---
Date of service: 03/14/25 Time of Service: 07:11 Medical Decision Making I received signout on this 55-year-old female with left knee pain worsening over the last day. Pain is primarily popliteal and medial thigh. D-dimer positive so ultrasound was ordered to assess for. Lane's cyst versus DVT. 9:05 AM I met with the patient. Her x-ray was read as negative for any acute osseous abnormalities. Her left lower extremity duplex study was negative for DVT and Lane's cyst. I had ordered the patient acetaminophen. She requested something stronger for pain. I gave her 100 mg of gabapentin as it does seem that she has been in the ED multiple times in the past 6 months with pain related complaints. She may certainly also have some type of a medial collateral ligament strain for which I gave her a knee immobilizer make her weightbearing as tolerated with her crutches at home. We discussed return indications including worsening pain any circulatory changes in her left lower extremity. Otherwise I advised PCP follow-up along with scheduled acetaminophen and ibuprofen. I offered the patient a work note which she declined. Quality:[facility] Health Related Social Needs: No Data to Display Discharge Plan Disposition Patient Disposition: Home Discharge Details Clinical Impression: Left knee pain, Limitation of joint motion of left knee Primary Care Provider: Breanna Reyes ED Provider: Robert Rodrigez [place] Meds and New Rx's Prescriptions: New gabapentin 100 mg capsule 100 mg PO BID Qty: 14 0RF Continued levothyroxine 175 MCG tablet 250 mcg PO DAILY ibuprofen 800 MG tablet 800 mg PO TID PRN PRNQty: 30 0RF amlodipine 10 mg Tablet 10 mg PO DAILY Ozempic 0.25 mg or 0.5 mg (2 mg/3 mL) pen injector 0.6 mg SUBCUT .weekly Patient Comments: INJECT 0.25MG SUBCUTANEOUSLY ONCE EVERY WEEK FOR 4 WEEKS, THEN INCREASE TO 0.5MG WEEKLY dorzolamide-timolol 22.3-6.8 mg/mL drops 1 drp ophthalmic (eye) BID Patient Comments: INSTILL 1 DROP INTO EACH EYE TWICE DAILY colesevelam 625 mg tablet 625 mg PO DAILY Patient Comments: TAKE 2 TABLETS BY MOUTH ONCE DAILY losartan 100 mg tablet 100 mg PO DAILY Patient Comments: TAKE 1 TABLET BY MOUTH ONCE DAILY spironolactone 25 mg tablet 25 mg PO DAILY Patient Comments: TAKE 1 TABLET BY MOUTH ONCE DAILY Eloisa Colon 140 mg/mL pen injector 140 mg SUBCUT .[id number] carvedilol 6.25 mg tablet 6.25 mg PO DAILY cyclobenzaprine 10 mg tablet 10 mg PO TID Qty: 14 0RF lidocaine [Lidoderm] 5 % adhesive patch,medicated 1 patch Topical Q24H Qty: 15 0RF hydrochlorothiazide 25 mg tablet 25 mg PO DAILY Patient Comments: TAKE 1 TABLET BY MOUTH ONCE DAILY
[2025-03-14] MEDS: Gabapentin 100 MG CAP PO (09:15)
--- NOTE | 2025-03-17 18:04 | NUR.NOTE ---
Accessed chart to get the discharge diagnosis for [facility] billing purposes. Nursing Note:
== END 2025-03-14 09:29 | disposition home or self-care (01) ==
PROVIDERS: Emergency Medicine; Emergency Provider Emergency Medicine; PCP Physician Assistant Medical
DX: M25.562 Pain in left knee (principal); I10 Essential (primary) hypertension; E03.9 Hypothyroidism, unspecified; F17.210 Nicotine dependence, cigarettes, uncomplicated; Z79.899 Other long term (current) drug therapy
CPT/HCPCS: 123; 73562; 85652; 96374; 99285; 00123; 85025; 85379; 86140; 93971; 99284; J1885

== ENCOUNTER 2025-03-24 14:20 | Outpatient (REF) | payer BC, SELFPAY ==
[2025-03-24 16:26] LABS: Anion Gap 8.9 mmol/L (3-11); BUN 15 mg/dL (7-18); CO2 29.1 mmol/L (21.0-32.0); CREATININE 0.7 mg/dL (0.55-1.02); Calcium 9.9 mg/dL (8.5-10.1); Chloride 99 mmol/L (98-107); Creatine Kinase 205 U/L (26-192); Estimated GFR 104.65 (mL/min/1.73m2); Glucose 105 mg/dL (74-106); Potassium 3.6 mmol/L (3.5-5.1); Sodium 137 mmol/L (136-145)
== END 2025-03-24 14:21 | disposition home or self-care (01) ==
LOC: NCHCN 14:20
PROVIDERS: PCP Physician Assistant Medical; Visit Provider Physician Assistant Medical
DX: M62.838 Other muscle spasm (principal)
CPT/HCPCS: 80048; 82550; 83735

== ENCOUNTER 2025-04-09 18:01 | Outpatient (REF) | payer BC, SELFPAY ==
[2025-04-09 21:34] LABS: Creatine Kinase 221 U/L (26-192)
== END 2025-04-09 18:02 | disposition home or self-care (01) ==
LOC: NCHCN 18:01
PROVIDERS: PCP Physician Assistant Medical; Visit Provider Physician Assistant Medical
DX: R74.8 Abnormal levels of other serum enzymes (principal)
CPT/HCPCS: 82550

== ENCOUNTER 2025-05-09 22:52 | Outpatient (REF) | payer BC, SELFPAY ==
[2025-05-09 20:16] LABS: Creatine Kinase 215 U/L (26-192)
== END 2025-05-09 22:53 | disposition home or self-care (01) ==
LOC: NCHCN 22:52
PROVIDERS: PCP Physician Assistant Medical; Visit Provider Physician Assistant Medical
DX: R74.8 Abnormal levels of other serum enzymes (principal)
CPT/HCPCS: 82550

== ENCOUNTER 2025-06-03 17:10 | Outpatient (REF) | payer BC, SELFPAY ==
[2025-06-03 19:40] LABS: Calculated LDL 175 mg/dL (<100); Cholesterol 287 mg/dL (<200); HDL Cholesterol 60 mg/dL (>or=50); Triglyceride 261 mg/dL (<150)
[2025-06-05 10:14] LABS: Lyme Ab w Rflx to Lyme Confirm Negative (Negative)
[2025-06-07 13:17] LABS: B. miyamotoi PCR Negative (Negative); Babesia divergens/MO-1 Negative (Negative); Ehrlichia muris eauclairensis Negative (Negative)
== END 2025-06-03 17:11 | disposition home or self-care (01) ==
LOC: NCHCN 17:10
PROVIDERS: PCP Physician Assistant Medical; Visit Provider Physician Assistant Medical
DX: E78.5 Hyperlipidemia, unspecified (principal); M25.59 Pain in other specified joint
CPT/HCPCS: 80061; 87798; 86038; 86431; 86618

== ENCOUNTER 2025-10-28 16:02 | Emergency (ER) | payer SELFPAY ==
[2025-10-28 16:06] VITALS: BP 187/85; PULSE 93; RESP 20; TEMP 36.4; O2SAT 97
[2025-10-28 16:08] VITALS: BP 187/85; PULSE 93; RESP 20; TEMP 36.4; O2SAT 97
== END 2025-10-28 18:07 | disposition left against medical advice (07) ==
LOC: ER 16:33
PROVIDERS: PCP Physician Assistant Medical
DX: Z53.21 Procedure and treatment not carried out due to patient leaving prior to being seen by health care provider (principal)